=== PATIENT | male | born 1925 | race Caucasian/White ===

== ENCOUNTER 2017-06-17 07:58 | Observation (INO) | payer OTHER ==
[2017-06-17] MEDS ORDERED: NA CHLORIDE 0.9% 1,000 ML ONE (09:06)
[2017-06-17 09:12] LABS: Absolute Lymphocytes (CBC) 0.8 K/uL (0.7-4.9); Absolute Monocytes 0.9 K/uL (0.1-1.3); Absolute Neutrophil 8.1 K/uL (1.8-8.0); Basophils % 0.6 % (0-1.3); Eosinophils % 0.8 % (0-4.4); Hematocrit 31.1 % (39.6-49.0); Lymphocytes % 8.5 % (15.3-44.8); MCH 28.6 pg (27.0-35.0); MPV 9.1 fL (7.6-11.3); Monocytes % 8.8 % (3.3-12.3); RBC Red Blood Cell Count 3.57 M/uL (4.33-5.43)
--- NOTE | 2017-06-17 09:13 | RAD REPORT ---
EXAM DESCRIPTION: CT - Ct Stroke Brain Wo Cont - 06/17/2017 9:05 am CLINICAL HISTORY: CVA COMPARISON: 02/15/2017 TECHNIQUE: All CT scans are performed using dose optimization technique as appropriate and may inclu de automated exposure control or mA/KV adjustment according to patient size. FINDINGS: No intracranial hemorrhage, hydrocephalus or extra-axial fluid collection.Advanced general ized brain atrophy is present with advance periventricular and deep white matter chronic microvascula r ischemic changes. No midline shift. The paranasal sinuses and mastoids are clear. The calvarium is intact. IMPRESSION: No acute intracranial abnormality. The findings were discussed with ER physician Dr. Kyle on 06/17/2017 at 9:10 a.m. by telephone.
--- NOTE | 2017-06-17 09:16 | RAD REPORT ---
EXAM DESCRIPTION: CT - C Spine Wo Con - 06/17/2017 9:05 am CLINICAL HISTORY: Trauma, neck injury COMPARISON: 02/10/2017 TECHNIQUE: Axial 2 mm thick images of the cervical spine were obtained with sagittal and coronal rec onstruction images generated and reviewed. All CT scans are performed using dose optimization technique as appropriate and may include automated exposure control or mA/KV adjustment according to patient size. FINDINGS: Cervical body height and alignment are normal. Multilevel moderate degenerative spondylosi s is present throughout the cervical spine. Multilevel posterior osteophytosis seen. No fracture or a cute bony abnormality. No paraspinal mass or hematoma. Carotid atherosclerosis. IMPRESSION: No acute cervical spine finding seen.
[2017-06-17 09:20] LABS: Protime INR 1.32
--- NOTE | 2017-06-17 09:34 | RAD REPORT ---
EXAM DESCRIPTION: RAD - Chest Single View - 06/17/2017 9:26 am CLINICAL HISTORY: Fall, chest pain. COMPARISON: 02/15/2017, 11/01/2015 FINDINGS: Portable technique limits examination quality. Mild emphysema is present. Linear atelectasis is present left mid lung and right apex. The heart is m ildly prominent in size with aortic atherosclerosis. No displaced fractures. IMPRESSION: Stable chest since 02/15/2017.
[2017-06-17 09:46] LABS: Bicarbonate 30 mEq/L (21-31); Glucose Level 178 mg/dL (65-120); Lipase 35 U/L (22-51); Potassium 3.4 mEq/L (3.6-5.0); Sodium Level 139 mEq/L (135-145)
--- NOTE | 2017-06-17 09:51 | EDPHYS ---
Physician Documentation [facility] Name: Johnny Jaramillo Age: 89 yrs Sex: Male : 1925 Arrival Date: 06/17/2017 Time: 07:56 Bed 16 Private MD: ED Physician Bimal Kyle HPI: 06/17 08:32 This 89 yrs old Male presents to ER via EMS with complaints of Fall Injury. angel 08:32 Details of fall: The patient fell from a height, off furniture, approximately 3 feet. angel Onset: The symptoms/episode began/occurred just prior to arrival, this morning. Associated injuries: The patient sustained no obvious injury. Severity of symptoms: At their worst the symptoms were mild, in the emergency department the symptoms are unchanged. The patient has not experienced similar symptoms in the past. Historical: - Allergies: 08:06 Tape; ph - Home Meds: 08:06 aspirin 81 mg Oral TbEC 1 tab once daily [Active]; Centrum Silver 400-250 mcg Oral chew ph [Active]; Culturelle 10 billion cell Oral cap [Active]; Emilee-C with Bioflavonoids 500-200 mg Oral tab [Active]; Lasix 40 mg Oral tab 1 tab [Active]; metformin 500 mg Oral tab 1 tab 2 times per day [Active]; metoprolol tartrate 25 mg Oral tab 1 tab [Active]; potassium chloride 20 mEq/15 mL Oral liqd 15 mL once daily [Active]; Travatan Z 0.004 % ophthalmic drop 1 drop once daily [Active]; Tylenol-Codeine #3 300-30 mg Oral tab 1 tab every 4-6 hours [Active]; vitamin B complex Oral cap [Active]; - PMHx: 08:06 Cancer; Diabetes - NIDDM; Glaucoma; radiation; Anemia; Hypertension; Cirrhosis; UTI; ph Atrial Fib; - PSHx: 08:06 ear surgery; cancer removed; ph - Immunization history: Last tetanus immunization: unknown. - Social history:: Smoking status: Patient/guardian denies using tobacco. ROS: 08:32 Constitutional: Negative for fever, chills, and weight loss, Eyes: Negative for injury, angel pain, redness, and discharge, ENT: Negative for injury, pain, and discharge, Neck: Negative for injury, pain, and swelling, Cardiovascular: Negative for chest pain, palpitations, and edema, Respiratory: Negative for shortness of breath, cough, wheezing, and pleuritic chest pain, Abdomen/GI: Negative for abdominal pain, nausea, vomiting, diarrhea, and constipation, Back: Negative for injury and pain, : Negative for injury, bleeding, discharge, and swelling, Skin: Negative for injury, rash, and discoloration, Neuro: Negative for headache, weakness, numbness, tingling, and seizure, Psych: Negative for depression, anxiety, suicide ideation, homicidal ideation, and hallucinations, Allergy/Immunology: Negative for hives, rash, and allergies, Endocrine: Negative for neck swelling, polydipsia, polyuria, polyphagia, and marked weight changes, Hematologic/Lymphatic: Negative for swollen nodes, abnormal bleeding, and unusual bruising. 08:32 MS/extremity: Positive for decreased range of motion. 09:30 Neuro: Positive for not a tpa canidate, unknown time of onset, discussed with dr angel narvaez. Exam: 09:20 Constitutional: This is a well developed, well nourished patient who is awake, alert, angel and in no acute distress. Head/Face: Normocephalic, atraumatic. Eyes: Pupils equal round and reactive to light, extra-ocular motions intact. Lids and lashes normal. Conjunctiva and sclera are non-icteric and not injected. Cornea within normal limits. Periorbital areas with no swelling, redness, or edema. ENT: Nares patent. No nasal discharge, no septal abnormalities noted. Tympanic membranes are normal and external auditory canals are clear. Oropharynx with no redness, swelling, or masses, exudates, or evidence of obstruction, uvula midline. Mucous membranes moist. Neck: Trachea midline, no thyromegaly or masses palpated, and no cervical lymphadenopathy. Supple, full range of motion without nuchal rigidity, or vertebral point tenderness. No Meningismus. Chest/axilla: Normal chest wall appearance and motion. Nontender with no deformity. No lesions are appreciated. Respiratory: Lungs have equal breath sounds bilaterally, clear to auscultation and percussion. No rales, rhonchi or wheezes noted. No increased work of breathing, no retractions or nasal flaring. Abdomen/GI: Soft, non-tender, with normal bowel sounds. No distension or tympany. No guarding or rebound. No evidence of tenderness throughout. Back: No spinal tenderness. No costovertebral tenderness. Full range of motion. Male : Normal genitalia with no discharge or lesions. Skin: Warm, dry with normal turgor. Normal color with no rashes, no lesions, and no evidence of cellulitis. Psych: Awake, alert, with orientation to person, place and time. Behavior, mood, and affect are within normal limits. 09:20 Cardiovascular: Rate: normal, Rhythm: irregularly irregular, Pulses: Pulses are 4+ in bilateral radial, brachial, femoral, popliteal, posterior tibial and and dorsalis pedis arteries.. Heart sounds: normal, Edema: is not appreciated, JVD: is not appreciated. 09:20 Musculoskeletal/extremity: DVT Exam: No signs of deep vein thrombosis. no pain, no swelling, no tenderness, negative Homans' sign noted on exam, no appreciated bluish discoloration, no erythema, no increased warmth. 09:20 Neuro: Orientation: is normal, appropriate for stated age, no acute changes, Mentation: is normal, appropriate for stated age, no acute changes, Memory: is normal, appropriate for stated age, no acute changes, Cranial nerves: visual alarcon are intact. extraocular movements are intact, facial droop noted on left, with forehead spared. no gross hearing deficit,. Motor: moves all fours, Strength is 3/5 in the right arm, left arm, right leg and left leg, Gait: not tested. Deep tendon reflexes are 1 (trace) + in the bilateral brachioradialis, bicep, tricep and patellar and Achilles tendons, seizure activity, is not displayed by the patient. Vital Signs: 08:01 BP 106 / 68; Pulse 98; Resp 18; Temp 97.7(O); Pulse Ox 100% on R/A; ph 08:30 BP 116 / 64; Pulse 100; Resp 18; Pulse Ox 100% on R/A; mh5 10:15 ph 11:20 BP 131 / 85; Pulse 99; Resp 18; Temp 97.5(TE); Pulse Ox 99% on R/A; ph 12:30 BP 127 / 78; Pulse 94; Resp 18; Temp 97.5; Pulse Ox 99% on R/A; ph 10:15 Pt in MRI ph NIH Stroke Scale Scores: 09:16 NIHSS Score: 6 ph 09:23 NIHSS Score: 6 angel [place] Coma Score: 08:01 Eye Response: spontaneous(4). Verbal Response: oriented(5). Motor Response: obeys ph commands(6). Total: 15. 11:20 Eye Response: spontaneous(4). Verbal Response: oriented(5). Motor Response: obeys ph commands(6). Total: 15. Trauma Score (Adult): 08:01 Eye Response: spontaneous(1); Verbal Response: oriented(1); Motor Response: obeys ph commands(2); Systolic BP: > 89 mm Hg(4); Respiratory Rate: 10 to 29 per min(4); [place] Score: 15; Trauma Score: 12 11:20 Eye Response: spontaneous(1); Verbal Response: oriented(1); Motor Response: obeys ph commands(2); Systolic BP: > 89 mm Hg(4); Respiratory Rate: 10 to 29 per min(4); [place] Score: 15; Trauma Score: 12 MDM: 07:59 Patient medically screened. [facility] 08:34 Data reviewed: vital signs, nurses notes, lab test result(s), EKG, radiologic studies, [facility] CT scan, plain films. 09:33 Physician consultation: Prashant Narvaez MD was called at 09:30, regarding consult, [facility] patient's condition, need to evaluate the patient as soon as possible, and will see patient in inpatient room, no tpa, asa 81mg and add eliquis , no heparin. 06/17 08:30 Order name: Basic Metabolic Panel [facility] 06/17 08:30 Order name: BNP [facility] 06/17 08:30 Order name: CBC with Diff [facility] 06/17 08:30 Order name: Ckmb [facility] 06/17 08:30 Order name: CPK [facility] 06/17 08:30 Order name: LFT's [facility] 06/17 08:30 Order name: Magnesium [facility] 06/17 08:30 Order name: PT-INR [facility] 06/17 08:30 Order name: Ptt, Activated [facility] 06/17 08:30 Order name: Troponin (emerg Dept Use Only) [facility] 06/17 08:31 Order name: Lipase [facility] 06/17 08:31 Order name: Urine Culture [facility] 06/17 09:13 Order name: CBC with Automated Diff; Complete Time: 09:15 EDMS 06/17 09:20 Order name: Protime (+INR); Complete Time: 09:24 EDMS 06/17 08:30 Order name: XRAY Chest (1 view) [facility] 06/17 08:31 Order name: CT Head C Spine [facility] 06/17 09:14 Order name: CT; Complete Time: 09:15 EDMS 06/17 09:17 Order name: CT; Complete Time: 09:24 EDMS 06/17 09:20 Order name: PTT, Activated Partial Thromb; Complete Time: 09:24 EDRI 06/17 09:32 Order name: US Carotid Artery Bilateral [facility] 06/17 09:47 Order name: Basic Metabolic Panel; Complete Time: 09:55 EDMS 06/17 09:47 Order name: Lipase; Complete Time: 09:55 EDRI 06/17 09:48 Order name: BNP B-Type Natriuretic Peptide; Complete Time: 09:55 EDMS 06/17 09:48 Order name: CKMB Creatine Kinase MB; Complete Time: 09:55 EDMS 06/17 09:48 Order name: Creatine Phosphokinase; Complete Time: 09:55 EDMS 06/17 09:48 Order name: Liver (Hepatic) Function; Complete Time: 09:55 EDMS 06/17 09:48 Order name: Magnesium; Complete Time: 09:55 EDRI 06/17 09:48 Order name: Troponin (Emerg Dept Use Only); Complete Time: 09:54 EDMS 06/17 09:48 Order name: Urine Culture [facility] 06/17 08:30 Order name: EKG; Complete Time: 09:31 [facility] 06/17 08:30 Order name: Cardiac monitoring; Complete Time: 10:15 [facility] 06/17 08:31 Order name: EKG - Nurse/Tech; Complete Time: 10:15 [facility] 06/17 08:31 Order name: IV Saline Lock; Complete Time: 10:15 [facility] 06/17 08:31 Order name: Labs collected and sent; Complete Time: 10:15 [facility] 06/17 08:31 Order name: O2 Per Protocol; Complete Time: 10:16 [facility] 06/17 08:31 Order name: O2 Sat Monitoring; Complete Time: 10:16 [facility] 06/17 09:32 Order name: Echo w/ Doppler [facility] 06/17 09:34 Order name: RAD; Complete Time: 09:34 [facility]RI 06/17 09:49 Order name: Brain Wo Cont; Complete Time: 10:42 [facility]RI 06/17 09:55 Order name: CONS Physician Consult [facility]RI 06/17 11:20 Order name: SUKHI [facility] Administered Medications: 09:29 Not Given (Duplicate Order): PlaVIX 75 mg PO once angel 09:55 Not Given (Duplicate Order): NS 0.9% 1000 ml IV at 125 ml/hr continuous angel 11:40 Drug: Aspirin 162 mg Route: PO; ph 12:40 Follow up: Response: No adverse reaction ph 11:40 Drug: NS 0.9% with KCl 20 mEq/L 1000 ml Route: IV; Rate: 100 ml/hr; Site: left antecubital; 12:40 Follow up: Response: No adverse reaction; IV Status: Infusion continued upon admission ph 11:40 Drug: Magnesium Sulfate 1 grams Route: IVPB; Infused Over: 1 hrs; Site: left antecubital; 12:40 Follow up: Response: No adverse reaction; IV Status: Completed infusion ph 11:41 Drug: NS 0.9% 500 ml Route: IV; Rate: bolus; Site: left antecubital; ph 12:40 Follow up: Response: No adverse reaction; IV Status: Completed infusion ph 11:41 Drug: foLIC Acid 1 mg Route: IVPB; Site: left antecubital; ph 12:40 Follow up: Response: No adverse reaction; IV Status: Completed infusion ph 11:41 Drug: Eliquis 5 mg Route: PO; ph 12:40 Follow up: Response: No adverse reaction ph Point of Care Testing: Blood Glucose: 08:55 Blood Glucose: 168 mg/dL; ph Ranges: Critical Glucose Levels:Adult <50 mg/dl or >400 mg/dl <40 mg/dl or >180 mg/dl Disposition: 06/17/17 09:50 Hospitalization ordered by Oniel Tarango for Inpatient Admission. Preliminary diagnosis are Cerebral infarction, Fall due to bumping against object, Weakness, Atrial fibrillation and flutter, Type 2 diabetes mellitus, Hypokalemia, Hypomagnesemia. - Bed requested for Telemetry/MedSurg (Inpatient). - Status is Inpatient Admission. ph - Condition is Fair. - Problem is new. - Symptoms have improved. UTI on Admission? No NIH Stroke Scale - NIH Stroke Score Date: 06/17/2017 Time: 09:16 Total Score = 6 1a. Level of Consciousness (LOC) - 0(Alert) 1b. Level of Consciousness (LOC) (Year \T\ Age) - 0(Both) 1c. LOC Commands (Open \T\ Closes Eyes/Planner/Scheduler) - 0(Both) 2. Best Gaze (Lateral Gaze Paresis) - 0(Normal) 3. Visual Field Loss - 0(No visual loss) 4. Facial Palsy - 2(Partial paralysis) 5a. Left Arm: Motor (10-second hold) - 0(No drift) 5b. Right Arm: Motor (10-second hold) - 0(No drift) 6a. Left Leg: Motor (5-second hold - always test supine) - 1(Drift) 6b. Right Leg: Motor (5-second hold - always test supine) - 1(Drift) 7. Limb Ataxia (finger/nose \T\ heel/hamm - test with eyes open) - 2(Present in two limbs) 8. Sensory Loss (pinprick arms/legs/face) - 0(Normal) 9. Best Language: Aphasia (description/naming/reading) - 0(No aphasia) 10. Dysarthria (speech clarity - read or repeat words) - 0(Normal) 11. Extinction and Inattention (visual/tactile/auditory/spatial/personal) - 0(No abnormality) Initials: NIH Stroke Scale - NIH Stroke Score Date: 06/17/2017 Time: 09:23 Total Score = 6 1a. Level of Consciousness (LOC) - 0(Alert) 1b. Level of Consciousness (LOC) (Year \T\ Age) - 0(Both) 1c. LOC Commands (Open \T\ Closes Eyes/Planner/Scheduler) - 0(Both) 2. Best Gaze (Lateral Gaze Paresis) - 0(Normal) 3. Visual Field Loss - 0(No visual loss) 4. Facial Palsy - 2(Partial paralysis) 5a. Left Arm: Motor (10-second hold) - 0(No drift) 5b. Right Arm: Motor (10-second hold) - 0(No drift) 6a. Left Leg: Motor (5-second hold - always test supine) - 1(Drift) 6b. Right Leg: Motor (5-second hold - always test supine) - 1(Drift) 7. Limb Ataxia (finger/nose \T\ heel/hamm - test with eyes open) - 2(Present in two limbs) 8. Sensory Loss (pinprick arms/legs/face) - 0(Normal) 9. Best Language: Aphasia (description/naming/reading) - 0(No aphasia) 10. Dysarthria (speech clarity - read or repeat words) - 0(Normal) 11. Extinction and Inattention (visual/tactile/auditory/spatial/personal) - 0(No abnormality) Initials: [facility] Signatures: Dispatcher [employer] EDMS Jennifer Chaudhry Corey, MD MD cha Hall, Patricia, RN RN ph Corrections: (The following items were deleted from the chart) 09:23 08:32 Constitutional: This is a well developed, well nourished patient who is angel awake, alert, and in no acute distress. Head/Face: Normocephalic, atraumatic. Eyes: Pupils equal round and reactive to light, extra-ocular motions intact. Lids and lashes normal. Conjunctiva and sclera are non-icteric and not injected. Cornea within normal limits. Periorbital areas with no swelling, redness, or edema. ENT: Nares patent. No nasal discharge, no septal abnormalities noted. Tympanic membranes are normal and external auditory canals are clear. Oropharynx with no redness, swelling, or masses, exudates, or evidence of obstruction, uvula midline. Mucous membranes moist. Neck: Trachea midline, no thyromegaly or masses palpated, and no cervical lymphadenopathy. Supple, full range of motion without nuchal rigidity, or vertebral point tenderness. No Meningismus. Chest/axilla: Normal chest wall appearance and motion. Nontender with no deformity. No lesions are appreciated. Cardiovascular: Regular rate and rhythm with a normal S1 and S2. No gallops, murmurs, or rubs. Normal PMI, no JVD. No pulse deficits. Respiratory: Lungs have equal breath sounds bilaterally, clear to auscultation and percussion. No rales, rhonchi or wheezes noted. No increased work of breathing, no retractions or nasal flaring. Abdomen/GI: Soft, non-tender, with normal bowel sounds. No distension or tympany. No guarding or rebound. No evidence of tenderness throughout. Back: No spinal tenderness. No costovertebral tenderness. Full range of motion. Male : Normal genitalia with no discharge or lesions. Skin: Warm, dry with normal turgor. Normal color with no rashes, no lesions, and no evidence of cellulitis. Neuro: Awake and alert, GCS 15, oriented to person, place, time, and situation. Cranial nerves II-XII grossly intact. Motor strength 5/5 in all extremities. Sensory grossly intact. Cerebellar exam normal. Normal gait. Psych: Awake, alert, with orientation to person, place and time. Behavior, mood, and affect are within normal limits. angel 09:23 08:32 Musculoskeletal/extremity: DVT Exam: No signs of deep vein thrombosis. no angel pain, no swelling, no tenderness, negative Homans' sign noted on exam, no appreciated bluish discoloration, no erythema, no increased warmth, [facility] 10:07 09:32 MR STROKE PROTOCOL+MRI.JIAN.CALDERON ordered. EDMS EDMS
--- NOTE | 2017-06-17 09:51 | ER ---
Nurse's Notes [facility] Name: Johnny Jaramillo Age: 89 yrs Sex: Male : 1925 Arrival Date: 06/17/2017 Time: 07:56 Bed 16 Private MD: Diagnosis: Cerebral infarction;Fall due to bumping against object;Weakness;Atrial fibrillation and flutter;Type 2 diabetes mellitus;Hypokalemia;Hypomagnesemia Presentation: 06/17 07:57 Presenting complaint: EMS states: Pt from [facility], was found at 0645 this morning ph on floor by staff after falling from unknown position, pt denies LOC or pain, staff stated that the only reason she sent him in was because pupillary response was sluggish, pupils PERRLA for EMS. Care prior to arrival: None. Mechanism of Injury: Fall. Trauma event details: Injury occurred in the [facility], Injury occurred: in an institution. Injury occurred: June 17, 2017. 07:57 Acuity: HILDA 3 ph 07:57 Method Of Arrival: EMS: [facility] ph 08:08 Transition of care: patient was received from another setting of care (long-term care facility), [facility]. Onset of symptoms was June 17, 2017. 08:55 No acute neurological deficit is noted. ph Triage Assessment: 19:11 The onset of the patients symptoms was. ph 19:16 The onset of the patients symptoms was. ph Stroke Activation: Symptom onset < 3 hours Physician: Stroke Attending; Name: ; Notified At: ; Arrived At: Physician: Chief Stroke Resident; Name: ; Notified At: ; Arrived At: Physician: Stroke Resident; Name: ; Notified At: ; Arrived At: Physician: ED Attending; Name: ; Notified At: ; Arrived At: Physician: ED Resident; Name: ; Notified At: ; Arrived At: Historical: - Allergies: 08:06 Tape; ph - Home Meds: 08:06 aspirin 81 mg Oral TbEC 1 tab once daily [Active]; Centrum Silver 400-250 mcg Oral chew ph [Active]; Culturelle 10 billion cell Oral cap [Active]; Emilee-C with Bioflavonoids 500-200 mg Oral tab [Active]; Lasix 40 mg Oral tab 1 tab [Active]; metformin 500 mg Oral tab 1 tab 2 times per day [Active]; metoprolol tartrate 25 mg Oral tab 1 tab [Active]; potassium chloride 20 mEq/15 mL Oral liqd 15 mL once daily [Active]; Travatan Z 0.004 % ophthalmic drop 1 drop once daily [Active]; Tylenol-Codeine #3 300-30 mg Oral tab 1 tab every 4-6 hours [Active]; vitamin B complex Oral cap [Active]; - PMHx: 08:06 Cancer; Diabetes - NIDDM; Glaucoma; radiation; Anemia; Hypertension; Cirrhosis; UTI; ph Atrial Fib; - PSHx: 08:06 ear surgery; cancer removed; ph - Immunization history: Last tetanus immunization: unknown. - Social history:: Smoking status: Patient/guardian denies using tobacco. Screenin:07 Abuse screen: Denies threats or abuse. Denies injuries from another. Nutritional ph screening: On. Tuberculosis screening: No symptoms or risk factors identified. Fall Risk Fall in past 12 months (25 points). Secondary diagnosis (15 points) impaired mobility, No IV (0 pts). Ambulatory Aid- Crutches/Cane/Walker (15 pts). Gait- Weak (10 pts.). Mental Status- Oriented to own ability (0 pts). Total Brewer Fall Scale indicates High Risk Score (45 or more points). Fall prevention measures have been instituted. Side Rails Up X 2 Placed Close to Nursing Station Frequent Obs/Assessments Occuring As available patient and family educated on Fall Prevention Program and Strategies. Primary Survey: 08:07 A: Airway: patent. Breathing/Chest: Respiratory pattern: regular, Respiratory effort: ph spontaneous, unlabored. Circulation: Skin color: pink, Skin temperature: warm, dry. Disability Alert. 12:40 Reassessment Breathing/Chest Respiratory pattern Regular Respiratory effort Spontaneous ph Unlabored. Assessment: 08:10 General: Appears in no apparent distress. comfortable, slender, Behavior is calm, ph cooperative, drowsy. Pain: Denies pain. Neuro: Level of Consciousness is awake, obeys commands, Oriented to person, place, situation, Pupils are PERRLA. Neuro: Denies blurred vision dizziness, headache. Cardiovascular: Denies chest pain, lightheadedness, shortness of breath, Capillary refill < 3 seconds Patient's skin is warm and dry. Respiratory: Airway is patent Trachea midline Respiratory effort is even, unlabored, Respiratory pattern is regular, symmetrical. Derm: Skin is fragile, is thin, Skin is pink, warm \T\ dry. Musculoskeletal: Circulation, motion, and sensation intact. 08:55 Reassessment: Radiology at bedside for CXR, notified nurse of facial droop, droop noted ph to L side of face, measuring machine tender noted to be weak on L side, ERP notified of changes, code stroke called. 08:56 Reassessment: Pt taken to CT via stretcher, accompanied by Lo Gipson RN. ph 09:16 Reassessment: ERP at bedside. ph 09:18 Reassessment: Patient appears in no apparent distress at this time. Patient and/or ph family updated on plan of care and expected duration. Pain level reassessed. Rocio w/ Cj at [facility] who reported that pt was seen at 0600 trying to get out of bed, but reports that last seen normal is unkown. 10:17 Reassessment: Pt in MRI. ph 11:04 Reassessment: Patient appears in no apparent distress at this time. Patient and/or ph family updated on plan of care and expected duration. Pain level reassessed. Patient is alert, oriented x 3, equal unlabored respirations, skin warm/dry/pink. Tech at bedside for ECHO, pt resting quietly, awaiting room assignment, at bedside. 11:35 Patient has been NPO before screening. The patient is alert, and able to follow ph commands. The patient does not exhibit slurred or garbled speech. The patient is not exhibiting difficulty speaking. The patient does not exhibit difficulty understanding words. The patient is able to swallow own secretions with no drooling or need for suction. Patient tolerated one teaspoon of water. No drooling, immediate coughing, gurgling, or clearing of the throat was noted. The patient passed the bedside swallow screening. Oral medications may be given as ordered. Contact Physician for further diet orders. Provider notified of bedside swallow screening results: Bimal Kyle MD. 12:17 Reassessment: Patient appears in no apparent distress at this time. Patient and/or ph family updated on plan of care and expected duration. Pain level reassessed. Patient is alert, oriented x 3, equal unlabored respirations, skin warm/dry/pink. Report called to Mary Dumont RN, pt waiting to be taken to inpatient room. Vital Signs: 08:01 BP 106 / 68; Pulse 98; Resp 18; Temp 97.7(O); Pulse Ox 100% on R/A; ph 08:30 BP 116 / 64; Pulse 100; Resp 18; Pulse Ox 100% on R/A; mh5 10:15 ph 11:20 BP 131 / 85; Pulse 99; Resp 18; Temp 97.5(TE); Pulse Ox 99% on R/A; ph 12:30 BP 127 / 78; Pulse 94; Resp 18; Temp 97.5; Pulse Ox 99% on R/A; ph 10:15 Pt in MRI ph Jenna Coma Score: 08:01 Eye Response: spontaneous(4). Verbal Response: oriented(5). Motor Response: obeys ph commands(6). Total: 15. 11:20 Eye Response: spontaneous(4). Verbal Response: oriented(5). Motor Response: obeys ph commands(6). Total: 15. Trauma Score (Adult): 08:01 Eye Response: spontaneous(1); Verbal Response: oriented(1); Motor Response: obeys ph commands(2); Systolic BP: > 89 mm Hg(4); Respiratory Rate: 10 to 29 per min(4); Jenna Score: 15; Trauma Score: 12 11:20 Eye Response: spontaneous(1); Verbal Response: oriented(1); Motor Response: obeys ph commands(2); Systolic BP: > 89 mm Hg(4); Respiratory Rate: 10 to 29 per min(4); [place] Score: 15; Trauma Score: 12 NIH Stroke Scale Scores: 09:16 NIHSS Score: 6 ph 09:23 NIHSS Score: 6 [facility] ED Course: 07:56 Patient arrived in ED. ph 07:59 Bimal Kyle MD is Attending Physician. [facility] 08:00 Triage completed. ph 08:01 Patient has correct armband on for positive identification. Placed in gown. Bed in low mh5 position. Side rails up X2. 08:02 Warm blanket given. Pulse ox on. NIBP on. mh5 08:09 Arm band placed on. ph 08:09 Patient maintains SpO2 saturation greater than 95% on room air. Thermoregulation: warm ph blanket given to patient. 08:13 Dejah Fragoso, WOODY is Primary Nurse. ph 09:00 Initial lab(s) drawn, by nh, sent to lab. Inserted saline lock: 22 gauge in left mh5 antecubital area, using aseptic technique. Blood collected. 09:13 X-ray completed. Portable x-ray completed in exam room. Patient tolerated procedure jb2 well. 09:16 EKG done, by emissions testing technician. reviewed by Bimal Kyle MD. tc 09:42 Oniel Tarango MD is Hospitalizing Provider. angel 09:57 Patient moved to MRI via stretcher. em2 10:28 Patient taken to ultrasound. via stretcher. hr 11:00 MRI completed. Patient tolerated well. ka 11:00 Ultrasound completed. Patient tolerated well. lc3 11:00 Patient moved back from ultrasound. lc3 12:43 No provider procedures requiring assistance completed. Patient admitted, IV remains in ph place. Administered Medications: 09:29 Not Given (Duplicate Order): PlaVIX 75 mg PO once angel 09:55 Not Given (Duplicate Order): NS 0.9% 1000 ml IV at 125 ml/hr continuous angel 11:40 Drug: Aspirin 162 mg Route: PO; ph 12:40 Follow up: Response: No adverse reaction ph 11:40 Drug: NS 0.9% with KCl 20 mEq/L 1000 ml Route: IV; Rate: 100 ml/hr; Site: left ph antecubital; 12:40 Follow up: Response: No adverse reaction; IV Status: Infusion continued upon admission ph 11:40 Drug: Magnesium Sulfate 1 grams Route: IVPB; Infused Over: 1 hrs; Site: left ph antecubital; 12:40 Follow up: Response: No adverse reaction; IV Status: Completed infusion ph 11:41 Drug: NS 0.9% 500 ml Route: IV; Rate: bolus; Site: left antecubital; ph 12:40 Follow up: Response: No adverse reaction; IV Status: Completed infusion ph 11:41 Drug: foLIC Acid 1 mg Route: IVPB; Site: left antecubital; ph 12:40 Follow up: Response: No adverse reaction; IV Status: Completed infusion ph 11:41 Drug: Eliquis 5 mg Route: PO; ph 12:40 Follow up: Response: No adverse reaction ph Point of Care Testing: Blood Glucose: 08:55 Blood Glucose: 168 mg/dL; ph Ranges: Intake: 08:01 PO: 0ml; Total: 0ml. ph Output: 08:01 Urine: 0ml; Total: 0ml. Outcome: 09:50 Decision to Hospitalize by Provider. angel 12:43 Patient left the ED. ph 12:43 Admitted to Tele accompanied by tech, via stretcher, with chart. ph 12:43 Condition: stable 12:43 Instructed on the need for admit. 12:43 Patient's length of stay was not longer than 2 hours. NIH Stroke Scale - NIH Stroke Score Date: 06/17/2017 Time: 09:16 Total Score = 6 1a. Level of Consciousness (LOC) - 0(Alert) 1b. Level of Consciousness (LOC) (Year \T\ Age) - 0(Both) 1c. LOC Commands (Open \T\ Closes Eyes/Gis Application Developer) - 0(Both) 2. Best Gaze (Lateral Gaze Paresis) - 0(Normal) 3. Visual Field Loss - 0(No visual loss) 4. Facial Palsy - 2(Partial paralysis) 5a. Left Arm: Motor (10-second hold) - 0(No drift) 5b. Right Arm: Motor (10-second hold) - 0(No drift) 6a. Left Leg: Motor (5-second hold - always test supine) - 1(Drift) 6b. Right Leg: Motor (5-second hold - always test supine) - 1(Drift) 7. Limb Ataxia (finger/nose \T\ heel/hamm - test with eyes open) - 2(Present in two limbs) 8. Sensory Loss (pinprick arms/legs/face) - 0(Normal) 9. Best Language: Aphasia (description/naming/reading) - 0(No aphasia) 10. Dysarthria (speech clarity - read or repeat words) - 0(Normal) 11. Extinction and Inattention (visual/tactile/auditory/spatial/personal) - 0(No abnormality) Initials: NIH Stroke Scale - NIH Stroke Score Date: 06/17/2017 Time: 09:23 Total Score = 6 1a. Level of Consciousness (LOC) - 0(Alert) 1b. Level of Consciousness (LOC) (Year \T\ Age) - 0(Both) 1c. LOC Commands (Open \T\ Closes Eyes/Gis Application Developer) - 0(Both) 2. Best Gaze (Lateral Gaze Paresis) - 0(Normal) 3. Visual Field Loss - 0(No visual loss) 4. Facial Palsy - 2(Partial paralysis) 5a. Left Arm: Motor (10-second hold) - 0(No drift) 5b. Right Arm: Motor (10-second hold) - 0(No drift) 6a. Left Leg: Motor (5-second hold - always test supine) - 1(Drift) 6b. Right Leg: Motor (5-second hold - always test supine) - 1(Drift) 7. Limb Ataxia (finger/nose \T\ heel/hamm - test with eyes open) - 2(Present in two limbs) 8. Sensory Loss (pinprick arms/legs/face) - 0(Normal) 9. Best Language: Aphasia (description/naming/reading) - 0(No aphasia) 10. Dysarthria (speech clarity - read or repeat words) - 0(Normal) 11. Extinction and Inattention (visual/tactile/auditory/spatial/personal) - 0(No abnormality) Initials: angel Signatures: Bimal Kyle MD MD cha Buechter, Rajiv jb2 Sree, Tom [place] em2 Jeannette Proctor, dramatic art teacher EKG Ttc Dejah Fragoso, WOODY RN Seth Chan Katelyn ka Martinez, Maria [facility] Corrections: (The following items were deleted from the chart) 09:07 09:04 BP 116 / 64; Pulse 100bpm; Resp 18bpm; Pulse Ox 100% RA; mh5 mh5 11:02 08:52 Reassessment: Radiology at bedside for CXR, notified nurse of facial ph droop, droop noted to L side of face, measuring machine tender noted to be weak on L side, ERP notified of changes, code stroke called ph
[2017-06-17 09:53] LABS: ALT/SGPT 20 IU/L (10-60); AST/SGOT 23 IU/L (10-42); Albumin 2.2 g/dL (3.2-5.5); Alkaline Phosphatase 189 IU/L (42-121); BUN Blood Urea Nitrogen 19 mg/dL (6-20); Bilirubin Direct 0.2 mg/dL (0-0.2); Bilirubin Total 0.6 mg/dL (0.3-1.2); Creatine Phosphokinase 83 IU/L (22-269); Glomerular Filtration Rate > 90 mL/min (=/>90); Magnesium 1.6 mg/dL (1.8-2.5); Protein, Total 6.6 g/dL (6.0-8.3)
[2017-06-17] MEDS ORDERED: APIXABAN 5 MG TABLET PO ONE (10:15)
--- NOTE | 2017-06-17 10:21 | EKG ---
Test Date: 2017-06-17 Test Time: 09:08:55 Advertising Sales Agent: PAYAL MEASUREMENT RESULTS: Intervals: Rate: 102 CO: QRSD: 90 QT: 310 QTc: 404 [place]: P: CO: QRS: 76 T: 87 INTERPRETIVE STATEMENTS: Atrial fibrillation with rapid ventricular response Abnormal ECG Compared to ECG 02/15/2017 02:00:40 ST (T wave) deviation no longer present Electronically Signed On 06-17-17 10:21:08 CDT by Gilberto Ludwig
[2017-06-17] MEDS ORDERED: NS KCL 20MEQ 1,000 ML IV ONE (10:23)
[2017-06-17] MEDS ORDERED: NA CHLORIDE 0.9% 500 ML ONE (10:23)
[2017-06-17] MEDS ORDERED: ASPIRIN 81 MG CHEWABLE TABLET ONE (10:23)
[2017-06-17] MEDS ORDERED: MAGNESIUM SULFATE 1 gm IVPB 1 GM/100 ML BAG IV ONE (10:24)
[2017-06-17] MEDS ORDERED: FOLIC ACID 5 MG/ML VIAL ONE (10:25)
--- NOTE | 2017-06-17 10:42 | RAD REPORT ---
EXAM DESCRIPTION: MRI - Brain Wo Cont - 06/17/2017 10:19 am CLINICAL HISTORY: Syncope COMPARISON: August 2014 MRI brain TECHNIQUE: Axial, sagittal, and coronal magnetic images of the brain were obtained. Contrast was not requested FINDINGS: Moderate to marked abnormal signal is present within periventricular, deep and subcortical white matter likely representing ischemic changes secondary to small vessel disease. Diffusion-weighted/ADC mapping does not reveal evidence of acute infarction. The ventricles are normal caliber. Cerebral atrophy is present. An extra-axial fluid collection is not present Fluid within the sinuses/mastoids is not seen. A 21 millimeter cystic lesion within the left parotid gland is without significant change. IMPRESSION: No acute intracranial abnormality is seen.
--- NOTE | 2017-06-17 11:20 | RAD REPORT ---
EXAM DESCRIPTION: VASCarotid Artery Bilateral06/17/2017 10:49 am CLINICAL HISTORY: TIA COMPARISON: None FINDINGS: The velocity of the right internal carotid artery equals 47 cm/sec. The right ICA/CCA rati o 1.2 The velocity of the left internal carotid artery equals 61 cm/sec. The left ICA/CCA ratio 1.3 Mild plaque is present within the right carotid bulb. Mild plaque is present within additional caroti d arteries The vertebral arteries demonstrate antegrade flow IMPRESSION: Mild to moderate plaque within the carotid arteries without evidence of a hemodynamicall y significant stenosis
--- NOTE | 2017-06-17 11:51 | ECHO ---
HEIGHT: ft in WEIGHT: lb oz DATE OF STUDY: 06/17/[address]: Bimal Kyle MD 2-DIMENSIONAL: YES M.MODE: YES DOPPLER: YES COLOR FLOW: YES TDS: PORTABLE: YES DEFINITY: BUBBLE STUDY: DIAGNOSIS: ATRIAL FIBRILLATION CARDIAC HISTORY: CATHERIZATION: NO SURGERY: NO PROSTHETIC VALVE: NO PACEMAKER: NO MEASUREMENTS (cm) DIASTOLIC (NORMALS) SYSTOLIC (NORMALS) IVSd 1.2 (0.6-1.2) LA Diam 5.1 (1.9-4.0) LVEF 69% LVIDd 4.7 (3.5-5.7) LVIDs 2.9 (2.0-3.5) %FS 38% LVPWd 1.2 (0.6-1.2) Ao Diam 3.4 (2.0-3.7) 2 DIMENSIONAL ASSESSMENT: RIGHT ATRIUM: NORMAL, PROMINENT EUSTACHIAN VALVE LEFT ATRIUM: DILATED RIGHT VENTRICLE: NORMAL LEFT VENTRICLE: LEFT VENTRICULAR HYPERTROPHY TRICUSPID VALVE: NORMAL MITRAL VALVE: MITRAL ANNULAR CALCIFICATION PULMONIC VALVE: NORMAL AORTIC VALVE: SCLEROSIS PERICARDIAL EFFUSION: NONE AORTIC ROOT: NORMAL LEFT VENTRICULAR WALL MOTION: NORMAL DOPPLER/COLOR FLOW: MILD TO MODERATE MITRAL REGURGITATION. MILD AORTIC AND TRICUSPID REGURGITATION. MILD PULMONARY HYPERTENSION. ESTIMATED RIGHT VENTRICULAR SYSTOLIC PRESSURE. COMMENTS: NORMAL LEFT VENTRICULAR EJECTION FRACTION. DILATED LEFT ATRIUM. LEFT VENTRICULAR HYPERTROPHY. MITRAL ANNULAR CALCIFICATION. AORTIC SCLEROSIS. MILD MITRAL AND TRICUSPID REGURGITATION. MILD PULMONARY HYPERTENSION. MILD TO MODERATE MITRAL REGURGITATION. TECHNOLOGIST: TORIN ESPINOSA
--- NOTE | 2017-06-17 15:01 | P.HP ---
Certification for Inpatient Patient admitted to: Observation With expected LOS: <2 Midnights Patient will require the following post-hospital care: None Practitioner: I am a practitioner with admitting privileges, knowledge of patient current condition, hospital course, and medical plan of care. Services: Services provided to patient in accordance with Admission requirements found in Title 42 Section 412.3 of the Code of Federal Regulations Patient History Date of Service: 06/17/17 Reason for admission: Fall History of Present Illness: This is a 89-year-old gentleman with a history of hypertension diabetes and the congestive heart failure atrial fibrillation who was brought in emergency room after falling in assisted today. The patient underwent evaluation the ER with the MRI a which is unremarkable for acute stroke. The patient was noticed to have a right side facial drop Allergies adhesive tape Allergy (Verified 05/07/16 10:03) Rash Home Medications: Ascorbate Calcium/Bioflavonoid [Emilee-C 500 mg Tablet] 1 each PO 1700 09/27/15 Furosemide [Lasix*] 40 mg PO SEECOM 09/27/15 Lactobacillus Rhamnosus GG [Culturelle] 1 tab PO DAILY 09/27/15 Metoprolol Tartrate [Lopressor*] 25 mg PO DAILY WITH BREAKFAST 09/27/15 Multivit-Min/FA/Lycopen/Lutein [Centrum Silver Tablet] 1 tab PO DAILY 09/27/15 Travoprost (Benzalkonium) [Travatan 0.004% Eye Drop] 1 drop OP BEDTIME 09/27/15 Vitamin B Complex 100 No.2 [B-100 Complex] 1 tab PO DAILY 09/27/15 Metformin HCl [Glucophage*] 500 mg PO BIDWM 11/01/15 Potassium Chloride [Micro-K] 20 meq PO SEECOM 11/01/15 Aspirin [Aspirin EC 81 MG] 81 mg PO DAILY 11/02/15 - Past Medical/Surgical History Diabetic: Yes -: Glaucoma -: A-fib -: Hepatitis -: HTN -: DM -: lung cancer -: anemia -: Lung CA- radiation -: Right Ear CA surgery -: tonsillectomy - Family History Mother -: Hypertension Father -: Cancer Notes: skin cancer - Social History Alcohol use: No CD- Drugs: No Caffeine use: No Review of Systems is unable to be obtained Physical Examination - Vital Signs Temperature: 97.5 F Blood Pressure: 131/85 Pulse: 99 Respirations: 18 - Physical Exam General: Alert, In no apparent distress, Oriented x2 HEENT: Atraumatic, PERRLA, Mucous membr. moist/pink, EOMI, Sclerae nonicteric Neck: Supple, 2+ carotid pulse no bruit, No LAD, Without JVD or thyroid abnormality Respiratory: Clear to auscultation bilaterally, Normal air movement Cardiovascular: Regular rate/rhythm, Normal S1 S2 Gastrointestinal: Normal bowel sounds, No tenderness Musculoskeletal: No tenderness Integumentary: No rashes Neurological: Other (He can move in arms but is hard for him to move his legs), Abnormal gait, Dementia Lymphatics: No axilla or inguinal lymphadenopathy - Studies Laboratory Data (last 24 hrs) 06/17/17 08:45: B-Natriuretic Peptide 272 H 06/17/17 08:45: Sodium 139, Potassium 3.4 L, BUN 19, Creatinine 0.75, Glucose 178 H, Magnesium 1.6 L, Total Bilirubin 0.6, AST 23, ALT 20, Alkaline Phosphatase 189 H, Lipase 35 06/17/17 08:45: PT 15.6 H, INR 1.32, APTT 28.9 06/17/17 08:45: WBC 10.0, Hgb 10.2 L, Hct 31.1 L, Plt Count 237 06/17/17 08:31: Sodium Cancelled, Potassium Cancelled, BUN Cancelled, Creatinine Cancelled, Glucose Cancelled, Magnesium Cancelled, Total Bilirubin Cancelled, AST Cancelled, ALT Cancelled, Alkaline Phosphatase Cancelled, Lipase Cancelled Assessment and Plan - Problems (Diagnosis) (1) Altered mental status Current Visit: Yes Status: Acute (2) Essential hypertension Current Visit: Yes Status: Chronic (3) Congestive heart failure Current Visit: Yes Status: Chronic Qualifiers: Heart failure type: diastolic Heart failure chronicity: chronic Qualified Code(s): I50.32 - Chronic diastolic (congestive) heart failure (4) Altered mental status Onset Date: 02/16/17 Current Visit: No Status: Acute Qualifiers: (5) Dehydration Current Visit: Yes Status: Acute (6) Hypertensive heart disease Current Visit: Yes Status: Chronic Qualifiers: Heart failure presence: with heart failure Heart failure type: diastolic Heart failure chronicity: chronic Qualified Code(s): I11.0 - Hypertensive heart disease with heart failure; I50.32 - Chronic diastolic (congestive) heart failure; I50.32 - Chronic diastolic (congestive) heart failure; I50.32 - Chronic diastolic (congestive) heart failure; I50.32 - Chronic diastolic ( congestive) heart failure (7) Afib Onset Date: 09/28/15 Current Visit: Yes Status: Chronic Qualifiers: Atrial fibrillation type: paroxysmal Qualified Code(s): I48.0 - Paroxysmal atrial fibrillation (8) Cirrhosis Onset Date: 02/16/17 Current Visit: Yes Status: Chronic Qualifiers: Ascites presence: unspecified (9) Diabetes Current Visit: Yes Status: Chronic Qualifiers: Diabetes mellitus type: type 2 Diabetes mellitus complication status: without complication - Plan --urinalysis rule out urinary tract infection --start patient on intravenous fluid replacement and potassium replacement --home medicine --start aspirin --clinically stroke insists based suspected. However MRI was negative for for stroke - Advance Directives Does patient have a Living Will: Yes Does patient have a Durable POA for Healthcare: Yes
[2017-06-17 15:36] VITALS: BMI 22.0
[2017-06-17] MEDS: ASPIRIN EC 81 MG TAB PO SCH (17:32)
[2017-06-17] MEDS: Ringers Lactate 1,000 ML IV SCH ×2 (17:32→23:55)
[2017-06-17 21:36] LABS: Urine Appearance CLEAR; Urine Bilirubin NEGATIVE (NEG); Urine Blood 1+ (NEG); Urine Color YELLOW; Urine Glucose NEGATIVE (NEG); Urine Microscopic Reflex ORDER UMIC; Urine Protein TRACE (NEG); Urine Specific Gravity 1.025 (1.005-1.030)
[2017-06-17 21:49] LABS: Urine Bacteria <20 /HPF (NONE SEEN); Urine Culture Reflex Order NOT NEEDED; Urine RBC 20-50 /HPF (NONE SEEN)
--- NOTE | 2017-06-17 23:24 | CON ---
Reason For Consultation: Consultation called because of fall from 3 feet off furniture. History Of Present Illness: Mr. Jaramillo is an 89-year-old patient with history of atrial fibrillation, nxe-wmybgje-tavdreozz diabetes mellitus, and cancer, who reportedly fell off furniture about 3 feet earlier in the morning on the . There was no reported obvious injury at that time. However, the patient appeared to be somewhat less responsive than usual self. He was evaluated in the emergency room and had a head CT scan which showed no acute ischemic or hemorrhagic change. The study however did show advanced small vessel ischemic disease. A subsequent brain MRI also done earlier today showed no acute ischemic or hemorrhagic change. However, there was marked periventricular small-vessel ischemic disease. His carotid artery ultrasound did demonstrate toub-lq-iduuooej plaque in carotid arteries without hemodynamically significant stenosis. Echocardiogram showed ejection fraction of 69% with mild regurgitation at multiple valves. Laboratory studies showed normal white blood cell count, mildly low hemoglobin 10.2, and platelets normal at 237. Coagulation panel showed INR of 1.32. Chemistries showed mildly low potassium of 3.4, glucose was 178, magnesium slightly low at 1.6, albumin low at 3.2. His electrocardiogram did show atrial fibrillation with a rapid ventricular response. Past Medical History: As indicated above in addition to glaucoma, diabetes, hypertension, history of lung cancer, chronic anemia. Past Surgical History: Status post radiation for cancer, right ear surgery, and tonsillectomy. Family History: Positive for hypertension in mother and cancer in father which is skin cancer. Social History: No alcohol, tobacco, or IV drug use. Allergies: ADHESIVE TAPE. Medications: At home, Emilee-C 500 mg daily, Lasix 40 mg daily, lactobacillus cultures daily, Lopressor 25 mg daily, Centrum Silver daily, Travatan 0.001% eyedrops at bedtime daily, Super B complex daily, Glucophage 500 mg twice daily , potassium chloride 20 mEq daily, aspirin 81 mg daily. Review of Systems: The patient is slow to respond and has not been able to give very reliable review of systems. However, from chart review and evaluation from emergency room notes, the patient did not have any recent fevers or chills, nausea, or vomiting. No myalgias, arthralgias, or generalized weakness or any generalized other issues. 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 Physical Examination: Vital Signs: Blood pressure 133/64, pulse 83, respiratory rate 16, temperature 97.6, oxygen saturation 97% on room air. Weight 158 pounds. Height 5 feet 11 inches. General: Mr. Jaramillo is resting in bed. He appears to be in no acute distress. HEENT: He is normocephalic, atraumatic. He does have poor dentition. Sclerae anicteric. Neck: Supple. Chest: Shows good air movement. Abdomen: Soft. Extremities: No significant edema or cyanosis. Neurologic: Neurologically, the patient was somewhat sleepy, however aroused easily and answered questions with a few words, did not appropriately. He did move the arms. Multiple covers over him with the legs equally well, although less than the arms. There are symmetric reflexes and good coordination in the upper extremities. Assessment: Mr. 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 He does have atrial fibrillation that is likely to be paroxysmal and should be a candidate for anticoagulation. However, given the patient's possible risk of falling that should be considered care as he may impact the head and that may result in intracranial bleeding, if he is put on anticoagulation. However, it should be noted that atrial fibrillation does increase the risk of stroke 5 fold over general population. Plan: The patient at this point may continue with a regimen of aspirin 81 mg daily, Eliquis 5 mg twice daily and folate 1 mg daily. Continue with comorbid medications as per primary team. He may benefit from physical therapy to improve his balance, coordination, gait, and decrease his risk of falling. ALEJANDRINA Voice ID: [id number] Report ID: [id number] CARMELA
[2017-06-18 04:49] LABS: ALT/SGPT 17 IU/L (10-60); AST/SGOT 20 IU/L (10-42); Alkaline Phosphatase 152 IU/L (42-121); BUN Blood Urea Nitrogen 20 mg/dL (6-20); Bicarbonate 29 mEq/L (21-31); Bilirubin Total 0.6 mg/dL (0.3-1.2); Glomerular Filtration Rate > 90 mL/min (=/>90); Glucose Level 171 mg/dL (65-120); Potassium 3.5 mEq/L (3.6-5.0); Protein, Total 5.9 g/dL (6.0-8.3); Sodium Level 140 mEq/L (135-145)
[2017-06-18] MEDS ORDERED: MEDIHONEY 44 ML TOPICAL TUBE TOP SCH (09:00)
[2017-06-18] MEDS ORDERED: FOLIC ACID 1 MG in NA CHLORIDE 0.9% 50 ML IV SCH (09:00)
[2017-06-18] MEDS: ASPIRIN EC 81 MG TAB PO SCH (09:52)
[2017-06-18] MEDS: Ringers Lactate 1,000 ML IV SCH (09:58)
--- NOTE | 2017-06-18 14:38 | RAD REPORT ---
EXAM DESCRIPTION: RAD - Barium Swallow Modified - 06/18/2017 2:19 pm CLINICAL HISTORY: Aspiration, difficulty swallowing COMPARISON: None. TECHNIQUE: The patient was given liquid, semi-solid and solid forms of barium. Lateral view fluorosc opic imaging was performed in conjunction with [facility]. FINDINGS: Laryngeal penetration was observed on the thin barium that the patient was able to clear. There was significant residual in the valleculae and piriform sinuses. Patient showed a delayed swall ow reflex. IMPRESSION: Laryngeal penetration without aspiration confirmed. Please see further detail on speech pathology report.
[2017-06-18 16:33] VITALS: BP 136/68; TEMP 98
--- NOTE | 2017-06-18 17:50 | P.DS ---
Admission Date: 06/17/17 Discharge Date: 06/18/17 Disposition: TRANSFER TO CARE HOME Discharge Condition: FAIR Reason for Admission: Fall - Problems (1) Dehydration Onset Date: 06/18/17 Current Visit: Yes Status: Acute (2) Altered mental status Onset Date: 06/18/17 Current Visit: Yes Status: Acute (3) Essential hypertension Onset Date: 06/18/17 Current Visit: Yes Status: Chronic (4) Congestive heart failure Onset Date: 06/18/17 Current Visit: Yes Status: Chronic Qualifiers: Heart failure type: diastolic Heart failure chronicity: chronic Qualified Code(s): I50.32 - Chronic diastolic (congestive) heart failure (5) Altered mental status Onset Date: 02/16/17 Current Visit: No Status: Acute Qualifiers: (6) Hypertensive heart disease Onset Date: 06/18/17 Current Visit: Yes Status: Chronic Qualifiers: Heart failure presence: with heart failure Heart failure type: diastolic Heart failure chronicity: chronic Qualified Code(s): I11.0 - Hypertensive heart disease with heart failure; I50.32 - Chronic diastolic (congestive) heart failure; I50.32 - Chronic diastolic (congestive) heart failure; I50.32 - Chronic diastolic (congestive) heart failure; I50.32 - Chronic diastolic ( congestive) heart failure (7) Afib Onset Date: 09/28/15 Current Visit: Yes Status: Chronic Qualifiers: Atrial fibrillation type: paroxysmal Qualified Code(s): I48.0 - Paroxysmal atrial fibrillation (8) Cirrhosis Onset Date: 02/16/17 Current Visit: Yes Status: Chronic Qualifiers: Ascites presence: unspecified (9) Diabetes Onset Date: 06/18/17 Current Visit: Yes Status: Chronic Qualifiers: Diabetes mellitus type: type 2 Diabetes mellitus complication status: without complication Brief History of Present Illness: This is a 89-year-old gentleman with a history of hypertension diabetes and the congestive heart failure atrial fibrillation who was brought in emergency room after falling in prison today. The patient underwent evaluation the ER with the MRI a which is unremarkable for acute stroke. The patient was noticed to have a right side facial drop Hospital Course: The patient admitted hospital because of falls and altered mental status. MRI a study shows no evidence of acute stroke. The patient was giving intravenous fluid replacement with clinical improvement and today the patient mental status returned to his baseline according to the patient's . The patient have a high risk fall due to general frail and dementia. The patient was kept on aspirin. Further anticoagulations was not given due to the concern of high risk of bleeding. The patient is discharged to [facility] in stable condition. The patient developed no complication during this hospitalization. There is no evidence of urine tract infection Vital Signs/Physical Exam: Temp Pulse Resp BP Pulse Ox 98 F 100 H 18 136/68 99 06/18/17 16:00 06/18/17 16:00 06/18/17 16:00 06/18/17 16:00 06/18/17 16:00 General: Alert, In no apparent distress, Oriented x2 HEENT: Atraumatic, PERRLA, EOMI Neck: Supple, JVD not distended Respiratory: Clear to auscultation bilaterally, Normal air movement Cardiovascular: Regular rate/rhythm, Normal S1 S2 Gastrointestinal: Normal bowel sounds, No tenderness Musculoskeletal: No tenderness Integumentary: No rashes Neurological: Normal speech, Normal tone, Normal affect Lymphatics: No axilla or inguinal lymphadenopathy Laboratory Data at Discharge: WBC 10.0 K/uL (4.3-10.9) 06/17/17 08:45 Hgb 10.2 g/dL (13.6-17.9) L 06/17/17 08:45 Hct 31.1 % (39.6-49.0) L 06/17/17 08:45 Plt Count 237 K/uL (152-406) 06/17/17 08:45 PT 15.6 SECONDS (9.5-12.5) H 06/17/17 08:45 INR 1.32 06/17/17 08:45 APTT 28.9 SECONDS (24.3-36.9) 06/17/17 08:45 Sodium 140 mEq/L (135-145) 06/18/17 04:15 Potassium 3.5 mEq/L (3.6-5.0) L 06/18/17 04:15 BUN 20 mg/dL (6-20) 06/18/17 04:15 Creatinine 0.59 mg/dL (0.61-1.24) L 06/18/17 04:15 Glucose 171 mg/dL (65-120) H 06/18/17 04:15 Magnesium 1.6 mg/dL (1.8-2.5) L 06/17/17 08:45 Total Bilirubin 0.6 mg/dL (0.3-1.2) 06/18/17 04:15 AST 20 IU/L (10-42) 06/18/17 04:15 ALT 17 IU/L (10-60) 06/18/17 04:15 Alkaline Phosphatase 152 IU/L (42-121) H 06/18/17 04:15 B-Natriuretic Peptide 272 pg/ml (<=100) H 06/17/17 08:45 LDL Cholesterol Direct 75 mg/dl (<130) 06/17/17 15:58 Lipase 35 U/L (22-51) 06/17/17 08:45 Home Medications: Acetaminophen [Tylenol] 2 tab PO Q6H PRN 06/17/17 Aspirin Chewable [Aspirin Chewable*] 1 tab PO DAILY 06/17/17 Collagenase [Santyl Ointment*] 1 spencer TOP QSHIFT 06/17/17 Insulin -Regular Human [Novolin -R*] See Protocol SQ ACHS 06/17/17 Metformin HCl [Glucophage*] 500 mg PO BID 06/17/17 Metoprolol Tartrate 25 mg PO Q12H 06/17/17 Multivitamin/Iron/Folic Acid [Centrum Adults Tablet] 1 each PO DAILY 06/17/17 Travoprost (Benzalkonium) [Travatan 0.004% Eye Drop] 1 drop EACH EYE BEDTIME Carlton [Carlton*] 1 pkt PO BID #60 powd.pack 06/18/17 Medihoney [Medihoney Woundcare Gel*] 1 appl TOP DAILY #1 tube 06/18/17 New Medications: Carlton [Carlton*] 1 pkt PO BID #60 powd.pack Medihoney [Medihoney Woundcare Gel*] 1 appl TOP DAILY #1 tube Diet: ST recommended thin liquids and pureed solids. The following strict aspiration precautions and dysphagia strategies were recommended: upright with all PO intake, slow rate, alternate liquids and solids, small bites/sips, swallow 2x with solids, remain upright for 30 mins post PO intake. Activity: Bedrest Time spent managing pt's care (in minutes): 15
[2017-06-18 18:18] VITALS: O2SAT 95
[2017-06-18] MEDS ORDERED: JUVEN PACKET PO SCH (21:00)
[2017-06-18] MEDS ORDERED: GLUCERNA SHAKE 237 ML CAN PO SCH (21:00)
== END 2017-06-18 18:59 ==
LOC: ER 07:58 → INTOOBSV 09:44 → ERHOLD 09:44 → 4TH 12:19
PROVIDERS: ADMIT Internal Medicine Hematology & Oncology; ATTEND Internal Medicine Hematology & Oncology
DX: E86.0 Dehydration (principal); R41.82 Altered mental status, unspecified; I11.0 Hypertensive heart disease with heart failure; I50.32 Chronic diastolic (congestive) heart failure; I48.0 Paroxysmal atrial fibrillation; K74.60 Unspecified cirrhosis of liver; E11.9 Type 2 diabetes mellitus without complications; Z79.82 Long term (current) use of aspirin
CPT/HCPCS: 36415 ×2; 70450; 70551; 71045; 72125; 74230; 80048; 80053; 80076; 82550; 82553; 82962 ×5; 83690; 83721; 83735; 83880; 84484; 85025; 85610; 85730; 87086; 87088; 92610; 93005; 93306; 93880; 96361; 96365; 96368; 97163; 99285; G0378 ×2; J3475; J7030; 81003; 81015

== ENCOUNTER 2017-07-10 11:26 | Inpatient (IN) | payer OTHER ==
[2017-07-10 11:54] LABS: Absolute Lymphocytes (CBC) 0.2 K/uL (0.7-4.9); Absolute Monocytes 0.2 K/uL (0.1-1.3); Absolute Neutrophil 3.4 K/uL (1.8-8.0); Basophils % 0.1 % (0-1.3); Hematocrit 34.5 % (39.6-49.0); Lymphocytes % 5.5 % (15.3-44.8); MCH 28.2 pg (27.0-35.0); MCV 85.3 fL (80-100); MPV 9.4 fL (7.6-11.3); Monocytes % 6.4 % (3.3-12.3); RBC Red Blood Cell Count 4.04 M/uL (4.33-5.43)
[2017-07-10 12:01] LABS: Potassium 3.1 mEq/L (3.6-5.0)
[2017-07-10 12:07] LABS: Albumin 2.4 g/dL (3.2-5.5); Bilirubin Direct 0.4 mg/dL (0-0.2); Magnesium 1.9 mg/dL (1.8-2.5)
--- NOTE | 2017-07-10 12:08 | RAD REPORT ---
EXAM DESCRIPTION: RAD - Chest Single View - 07/10/2017 12:01 pm CLINICAL HISTORY: Chest pain. COMPARISON: 06/17/2017, 02/15/2017 FINDINGS: Portable technique limits examination quality. Linear atelectasis is present left mid lung. Ill-defined pleural-based opacity in the right apex note d, similar to comparative examinations. Diffuse COPD is identified. The heart is normal in size. No d isplaced fractures. IMPRESSION: Prominent COPD pattern is noted with areas of linear scarring or identified, similar to comparative studies.
[2017-07-10 12:12] LABS: Protime INR 1.49
[2017-07-10] MEDS ORDERED: NA CHLORIDE 0.9% 1,000 ML ONE ×2 (12:16→13:14)
[2017-07-10 12:47] LABS: Blood Morphology Comment NOT SEEN (NOT SEEN); Platelet Estimate ADEQ; Toxic Granulation PRESENT
--- NOTE | 2017-07-10 12:55 | EKG ---
Test Date: 2017-07-10 Test Time: 11:48:03 [employer] Hand: ARMEN MEASUREMENT RESULTS: Intervals: Rate: 154 TN: QRSD: 88 QT: 318 QTc: 509 [place]: P: TN: QRS: 20 T: 136 INTERPRETIVE STATEMENTS: Atrial fibrillation with rapid ventricular response Nonspecific ST and T wave abnormality Abnormal ECG Compared to ECG 06/17/2017 09:08:55 ST (T wave) deviation now present Electronically Signed On 07-10-17 12:55:07 CDT by Gilberto Ludwig
[2017-07-10] MEDS ORDERED: CEFOXITIN/SWI 1gm 1 GM/10 ML SYR ONE (12:57)
[2017-07-10] MEDS ORDERED: METRONIDAZOLE 500mg IVPB 500 MG/100 ML BAG IV ONE (12:57)
--- NOTE | 2017-07-10 13:25 | RAD REPORT ---
EXAM DESCRIPTION: CT - Abdomen Pelvis W Contrast - 07/10/2017 12:28 pm CLINICAL HISTORY: Abdominal pain and abdominal distention. COMPARISON: January 2017. TECHNIQUE: Computed axial tomography of the abdomen and pelvis was obtained. 100 mL Isovue 300 was a dministered intravenously. Oral contrast was not requested. FINDINGS: The evaluation of bowel is somewhat limited secondary to the lack of oral contrast macerat ion. A small right pleural effusion is present. A tiny left pleural effusion is seen. Patchy left lower lobe opacities are seen. A cirrhotic liver is seen. The spleen is unremarkable. The pancreas is atrophic. An adrenal mass is not seen. Renal cysts are present. Diverticula stem from the colon without evidence of diverticulitis. The rectum is mildly distended wi th stool. Low density is present throughout portions of the ascending and descending colon as well as almost the entire transverse colon. Hounsfield unit negative 230. This may indicate an unusual form of lipomatosis. Another consideration is that this represents extensive lipid excretion Jejunum and most of the ileum is moderately dilated. The distal ileum is decompressed. Free air is not seen. A small amount of ascites is present. IMPRESSION: 1. Moderate dilatation of jejunum and most of the ileum compatible with a mechanical obs truction. 2. Mild left lower lobe alveolar opacities consistent with pneumonia.
[2017-07-10] MEDS ORDERED: Levofloxacin500mg IV 500 MG/100 ML BAG IV ONE (13:38)
--- NOTE | 2017-07-10 14:07 | ER ---
Nurse's Notes [facility] Name: Johnny Jaramillo Age: 89 yrs Sex: Male : 1925 Arrival Date: 07/10/2017 Time: 11:31 Bed 2 Private MD: Diagnosis: Pneumonia due to other specified bacteria;Small bowel obstruction ;Dehydration Presentation: 07/10 11:30 Method Of Arrival: EMS: [facility] tw2 11:31 Presenting complaint: EMS states: pt from [facility], for low potassium 2.8, abdominal tw2 distention which is not normal, hx of a-fib, anemia, DM, HTN, HR in 140's, BGL 220, a\T\ox1, which is normal, and just started yesterday. Transition of care: patient was received from another setting of care (long-term care facility), [facility]. Onset of symptoms was July 10, 2017. Initial Sepsis Screen: Does the patient meet any 2 criteria? RR > 20 per min. No. Patient's initial sepsis screen is negative. Does the patient have a suspected source of infection? No. Patient's initial sepsis screen is negative. Care prior to arrival: None. 11:31 Acuity: HILDA 3 tw2 Historical: - Allergies: 11:47 Tape; tw2 - Home Meds: 11:47 aspirin 81 mg Oral TbEC 1 tab once daily [Active]; Centrum Silver 400-250 mcg Oral TbEC tw2 [Active]; Culturelle 10 billion cell Oral cap [Active]; Lasix 40 mg Oral tab 1 tab [Active]; Emilee-C with Bioflavonoids 500-200 mg Oral tab [Active]; metformin 500 mg Oral tab 1 tab 2 times per day [Active]; metoprolol tartrate 25 mg Oral tab 1 tab [Active]; potassium chloride 20 mEq/15 mL Oral liqd 15 mL once daily [Active]; Tylenol-Codeine #3 300-30 mg Oral tab 1 tab every 4-6 hours [Active]; Travatan Z 0.004 % ophthalmic drop 1 drop once daily [Active]; vitamin B complex Oral cap [Active]; - PMHx: 11:47 Atrial Fib; Anemia; Cancer; Cirrhosis; Diabetes - NIDDM; Glaucoma; Hypertension; tw2 radiation; UTI; - PSHx: 11:47 ear surgery; cancer removed; tw2 - Immunization history:: Adult Immunizations up to date. - Social history:: Smoking status: Patient/guardian denies using tobacco. Screenin:47 Abuse screen: Denies threats or abuse. Nutritional screening: No deficits noted. tw2 Tuberculosis screening: No symptoms or risk factors identified. Fall Risk None identified. Assessment: 11:43 General: Appears in no apparent distress. Behavior is calm. Pain: Unable to use pain tw2 scale. Patient appears nad. Neuro: Level of Consciousness is awake, obeys commands, Oriented to person. Cardiovascular: Heart tones S1 S2 Capillary refill < 3 seconds Patient's skin is warm and dry. Respiratory: Airway is patent Respiratory effort is even, unlabored, Respiratory pattern is regular, symmetrical, Breath sounds are clear bilaterally. GI: Abdomen is round distended, Bowel sounds hypoactive in right upper quadrant, left upper quadrant, right lower quadrant and left lower quadrant. : No signs and/or symptoms were reported regarding the genitourinary system. EENT: No signs and/or symptoms were reported regarding the EENT system. Derm: Skin is dry, Skin temperature is warm. 11:47 Reassessment: spouse at bedside at this time. tw2 12:30 Reassessment: Patient appears in no apparent distress at this time. Patient and/or tw2 family updated on plan of care and expected duration. Pain level reassessed. 13:07 Reassessment: Patient appears in no apparent distress at this time. Patient and/or tw2 family updated on plan of care and expected duration. Pain level reassessed. 14:00 Reassessment: Patient appears in no apparent distress at this time. Patient and/or tw2 family updated on plan of care and expected duration. Pain level reassessed. 14:43 Reassessment: Patient appears in no apparent distress at this time. Patient and/or tw2 family updated on plan of care and expected duration. Pain level reassessed. 15:23 Reassessment: Patient appears in no apparent distress at this time. Patient and/or tw2 family updated on plan of care and expected duration. Pain level reassessed. 15:40 Reassessment: Dr. Ludwig at bedside at this time. tw2 16:00 Reassessment: attempt to call report to the ICU, spoke with Almaz. Almaz states that the sg room has not yet been assigned to the pt for ICU, if i can please call back in about 10 mins. will attempt to call report in 10 mins. Vital Signs: 11:35 BP 105 / 70; Pulse 146; Resp 31; Temp 97.8(O); Pulse Ox 100% on R/A; Weight 65.77 kg tw2 (R); Height 6 ft. 0 in. (182.88 cm) (R); Pain 0/10; 12:35 BP 104 / 86; Pulse 133; Resp 30; Pulse Ox 100% on R/A; tw2 13:42 BP 100 / 86; Pulse 125; Resp 30; Pulse Ox 100% on R/A; jb1 14:08 BP 121 / 81; Pulse 136; Resp 32; Pulse Ox 98% on R/A; tw2 14:43 BP 109 / 75; Pulse 129; Resp 26; Pulse Ox 100% on R/A; tw2 15:24 BP 99 / 63; Pulse 131; Resp 27; Pulse Ox 100% on R/A; tw2 15:51 BP 101 / 64; Pulse 135; Resp 28; Pulse Ox 99% on R/A; tw2 11:35 Body Mass Index 19.67 (65.77 kg, 182.88 cm) tw2 ED Course: 11:30 Bed in low position. Side rails up X2. food handler on. Pulse ox on. NIBP on. tw2 provider at bedside at this time. 11:30 No provider procedures requiring assistance completed. Inserted saline lock: 20 gauge tw2 in right forearm, using aseptic technique. ,using aseptic technique. per WOODY Gordon Blood collected. 11:31 Patient arrived in ED. jr8 11:32 Lucas Ferrari PA is PHCP. jr8 11:32 Warren Lira MD is Attending Physician. jr8 11:32 Val Guillen RN is Primary Nurse. tw2 11:35 Triage completed. tw2 11:36 Arm band placed on. tw2 11:41 Lactate Sent. tw2 12:01 XRAY Chest (1 view) In Process Unspecified. EDMS 12:05 EKG done, by ED staff, reviewed by Lucas VALERO. jb1 12:14 Notified Nurse Practitioner and/or Physician Manager In Home of a critical lab result(s), pt Lactic aid 25.4 Notified primary nurse of elevated lactic acid. 12:[address] via stretcher. tw2 12:27 CT completed. Patient tolerated procedure well. Patient moved to CT via stretcher. sj Patient moved back from CT. 12:28 CT Abd/Pelvis - W/Contrast In Process Unspecified. EDMS 14:04 NGT: inserted 12 Fr. via left nare. verified placement of air over stomach, verified sg return of gastric contents, to intermittent suction. Returned gastric contents. Patient tolerated well. 14:06 Marisa Mendez MD is Hospitalizing Provider. jr 15:06 Straight cath inserted, using sterile technique, 18 Fr. Specimen obtained. Returned tw2 adan urine. Patient tolerated well. Swing [employer] served as machinist general. 15:25 Patient admitted, IV remains in place. tw2 Administered Medications: 12:20 Drug: NS 0.9% 1000 ml Route: IV; Rate: 1 bolus; Site: right forearm; tw2 14:06 Follow up: Response: No adverse reaction; IV Status: Completed infusion; IV Intake: tw2 1000ml 13:00 Drug: Mefoxin 1 grams {Note: IVP available only from pharmacy.} Route: IVPB; Infused tw2 Over: 5 mins; Site: right forearm; 13:06 Follow up: Response: No adverse reaction; IV Status: Completed infusion tw2 13:05 Drug: Flagyl 500 mg Volume: 100 ml; Route: IVPB; Rate: 200 ml/hr; Infused Over: 30 tw2 mins; Site: right forearm; 14:06 Follow up: Response: No adverse reaction; IV Status: Completed infusion tw2 14:07 Drug: NS 0.9% 1000 ml Route: IV; Rate: 1000 ml; Site: right forearm; tw2 15:22 Follow up: Response: No adverse reaction; IV Status: Completed infusion; IV Intake: tw2 1000ml 14:07 Drug: LevaQUIN 500 mg Volume: 100 ml; Route: IVPB; Infused Over: 60 mins; Site: right tw2 forearm; 15:22 Follow up: Response: No adverse reaction; IV Status: Completed infusion tw2 14:10 Drug: Lopressor 5 mg Route: IVP; Site: right forearm; tw2 14:44 Follow up: Response: No adverse reaction; No adverse reaction, HR tw2 Intake: 14:06 IV: 1000ml; Total: 1000ml. tw2 15:22 IV: 1000ml; Total: 2000ml. tw2 Outcome: 14:07 Decision to Hospitalize by Provider. jr8 15:30 Admitted to Med/surg accompanied by tech, via stretcher, room 220, Report called to tw2 WOODY Osei 15:30 Condition: stable 15:30 Instructed on the need for admit. 15:52 Patient left the ED. tw2 Signatures: Dispatcher [employer] EDMS Taras Obando jb1 Otis Veras, RN RN sg Lisa Santizo RN RN pt Cee Ch Josh, PA PA jr8 Val Guillen RN RN tw2 Corrections: (The following items were deleted from the chart) 11:42 11:31 Method Of Arrival: EMS: [facility] tw2 tw2 12:24 11:30 Inserted saline lock: 20 gauge in right forearm, using aseptic technique. Blood tw2 collected. tw2 14:44 14:16 BP 121 / 81; Pulse 121bpm; Resp 27bpm; Pulse Ox 98% RA; tw2 tw2 15:07 15:06 Straight cath inserted, using sterile technique, 18 Fr. Specimen obtained. tw2 Returned adan urine. Patient tolerated well. tw2 15:26 11:31 Presenting complaint: EMS states: pt from [facility], for low potassium 2.8, tw2 abdominal distention which is not normal, hx of a-fib, anemia, DM, HTN, HR in 140's, BGL 220, a\T\ox1, which is normal, tw2
--- NOTE | 2017-07-10 14:07 | EDPHYS ---
Physician Documentation [facility] Name: Johnny Jaramillo Age: 89 yrs Sex: Male : 1925 Arrival Date: 07/10/2017 Time: 11:31 Bed 2 Private MD: ED Physician Warren Lira HPI: 07/10 12:20 This 89 yrs old Male presents to ER via EMS with complaints of Abnormal Lab jr8 Results, Abdominal Distention, Irregular Pulse. 12:20 Patient came via EMS for [place] facility for low potassium and abdominal distension which jr8 normally does not occur. A\T\O x1 which is baseline for patient . Onset: The symptoms/episode began/occurred at an unknown time. Severity of symptoms: At their worst the symptoms were moderate in the emergency department the symptoms are unchanged. It is unknown whether or not the patient has had similar symptoms in the past. It is unknown whether or not the patient has recently seen a physician. Historical: - Allergies: 11:47 Tape; tw2 - Home Meds: 11:47 aspirin 81 mg Oral TbEC 1 tab once daily [Active]; Centrum Silver 400-250 mcg Oral TbEC tw2 [Active]; Culturelle 10 billion cell Oral cap [Active]; Lasix 40 mg Oral tab 1 tab [Active]; Emilee-C with Bioflavonoids 500-200 mg Oral tab [Active]; metformin 500 mg Oral tab 1 tab 2 times per day [Active]; metoprolol tartrate 25 mg Oral tab 1 tab [Active]; potassium chloride 20 mEq/15 mL Oral liqd 15 mL once daily [Active]; Tylenol-Codeine #3 300-30 mg Oral tab 1 tab every 4-6 hours [Active]; Travatan Z 0.004 % ophthalmic drop 1 drop once daily [Active]; vitamin B complex Oral cap [Active]; - PMHx: 11:47 Atrial Fib; Anemia; Cancer; Cirrhosis; Diabetes - NIDDM; Glaucoma; Hypertension; tw2 radiation; UTI; - PSHx: 11:47 ear surgery; cancer removed; tw2 - Immunization history:: Adult Immunizations up to date. - Social history:: Smoking status: Patient/guardian denies using tobacco. ROS: 12:20 Eyes: Negative for injury, pain, redness, and discharge, ENT: Negative for injury, jr8 pain, and discharge, Neck: Negative for injury, pain, and swelling, Cardiovascular: Negative for chest pain, palpitations, and edema, Respiratory: Negative for shortness of breath, cough, wheezing, and pleuritic chest pain, Back: Negative for injury and pain, MS/Extremity: Negative for injury and deformity, Skin: Negative for injury, rash, and discoloration, Neuro: Negative for headache, weakness, numbness, tingling, and seizure. 12:20 Abdomen/GI: Positive for abdominal distension, Negative for abdominal pain, nausea, vomiting, and diarrhea, hematemesis, black/tarry stool, bowel incontinence, flatulence. Exam: 12:20 Eyes: Pupils equal round and reactive to light, extra-ocular motions intact. Lids and jr8 lashes normal. Conjunctiva and sclera are non-icteric and not injected. Cornea within normal limits. Periorbital areas with no swelling, redness, or edema. ENT: Nares patent. No nasal discharge, no septal abnormalities noted. Tympanic membranes are normal and external auditory canals are clear. Oropharynx with no redness, swelling, or masses, exudates, or evidence of obstruction, uvula midline. Mucous membranes moist. Neck: Trachea midline, no thyromegaly or masses palpated, and no cervical lymphadenopathy. Supple, full range of motion without nuchal rigidity, or vertebral point tenderness. No Meningismus. Cardiovascular: Regular rate and rhythm with a normal S1 and S2. No gallops, murmurs, or rubs. Normal PMI, no JVD. No pulse deficits. Respiratory: Lungs have equal breath sounds bilaterally, clear to auscultation and percussion. No rales, rhonchi or wheezes noted. No increased work of breathing, no retractions or nasal flaring. Back: No spinal tenderness. No costovertebral tenderness. Full range of motion. Skin: Warm, dry with normal turgor. Normal color with no rashes, no lesions, and no evidence of cellulitis. MS/ Extremity: Pulses equal, no cyanosis. Neurovascular intact. Full, normal range of motion. Neuro: Awake and alert, GCS 15, oriented to person. Cranial nerves II-XII grossly intact. Motor strength 5/5 in all extremities. Sensory grossly intact. 12:20 Abdomen/GI: Inspection: distension, that is mild, Bowel sounds: active, Palpation: soft, in all quadrants, nontender, in all quadrants, voluntary guarding, is not appreciated, involuntary guarding, is not appreciated, no appreciated organomegaly, Indicators: McBurney's point is not tender, Larsen's sign is negative, Rovsing's sign is negative, Liver: tenderness, is not appreciated. Vital Signs: 11:35 BP 105 / 70; Pulse 146; Resp 31; Temp 97.8(O); Pulse Ox 100% on R/A; Weight 65.77 kg tw2 (R); Height 6 ft. 0 in. (182.88 cm) (R); Pain 0/10; 12:35 BP 104 / 86; Pulse 133; Resp 30; Pulse Ox 100% on R/A; tw2 13:42 BP 100 / 86; Pulse 125; Resp 30; Pulse Ox 100% on R/A; jb1 14:08 BP 121 / 81; Pulse 136; Resp 32; Pulse Ox 98% on R/A; tw2 14:43 BP 109 / 75; Pulse 129; Resp 26; Pulse Ox 100% on R/A; tw2 15:24 BP 99 / 63; Pulse 131; Resp 27; Pulse Ox 100% on R/A; tw2 15:51 BP 101 / 64; Pulse 135; Resp 28; Pulse Ox 99% on R/A; tw2 11:35 Body Mass Index 19.67 (65.77 kg, 182.88 cm) tw2 MDM: 11:32 Patient medically screened. [facility] 14:05 Data reviewed: vital signs, nurses notes, lab test result(s), EKG, radiologic studies, [facility] CT scan, plain films, and as a result, I will admit patient. Data interpreted: Pulse oximetry: on room air is 100 %. Interpretation: normal. Counseling: I had a detailed discussion with the patient and/or guardian regarding: the historical points, exam findings, and any diagnostic results supporting the discharge/admit diagnosis, lab results, radiology results, the need for further work-up and treatment in the hospital. 07/10 11:33 Order name: Basic Metabolic Panel [facility] 07/10 11:33 Order name: BNP; Complete Time: 12:20 [facility] 07/10 11:33 Order name: CBC with Diff; Complete Time: 12:54 [facility] 07/10 11:33 Order name: CPK [facility] 07/10 11:33 Order name: LFT's; Complete Time: 12:09 [facility] 07/10 11:33 Order name: Magnesium; Complete Time: 12:09 [facility] 07/10 11:33 Order name: PT-INR; Complete Time: 12:20 [facility] 07/10 11:33 Order name: Troponin (emerg Dept Use Only); Complete Time: 12:10 [facility] 07/10 11:33 Order name: Blood Culture Adult (2) [facility] 07/10 11:33 Order name: Lactate; Complete Time: 12:20 [facility] 07/10 11:33 Order name: Basic Metabolic Panel; Complete Time: 12:09 [facility] 07/10 11:33 Order name: Creatine Phosphokinase; Complete Time: 12:09 [facility] 07/10 12:45 Order name: Manual Differential; Complete Time: 12:54 [facility] 07/10 11:33 Order name: XRAY Chest (1 view); Complete Time: 12:09 [facility] 07/10 11:33 Order name: EKG; Complete Time: 11:33 [facility] 07/10 12:10 Order name: CT Abd/Pelvis - W/Contrast [facility] 07/10 14:36 Order name: CONS Physician Consult [facility] 07/10 14:52 Order name: CONS Physician Consult [facility] 07/10 14:52 Order name: Chest Single View [facility] 07/10 14:52 Order name: Chest Single View [facility] 07/10 14:52 Order name: Chest Single View [facility] 07/10 14:52 Order name: Chest Single View [facility] 07/10 15:12 Order name: Urine Dipstick--Ancillary (enter results) 07/10 11:33 Order name: Cardiac monitoring; Complete Time: 11:41 [facility] 07/10 11:33 Order name: EKG - Nurse/Tech; Complete Time: 12:05 [facility] 07/10 11:33 Order name: IV Saline Lock; Complete Time: 11:41 [facility] 07/10 11:33 Order name: Labs collected and sent; Complete Time: 11:41 [facility] 07/10 11:33 Order name: O2 Per Protocol; Complete Time: 11:41 [facility] 07/10 11:33 Order name: O2 Sat Monitoring; Complete Time: 11: [facility] 07/10 13:26 Order name: NG Tube; Complete Time: 14:07 jr8 07/10 14:44 Order name: Straight Cath - Urine; Complete Time: 15:28 tw2 07/10 14:52 Order name: NPO EDMS Administered Medications: 12:20 Drug: NS 0.9% 1000 ml Route: IV; Rate: 1 bolus; Site: right forearm; tw2 14:06 Follow up: Response: No adverse reaction; IV Status: Completed infusion; IV Intake: tw2 1000ml 13:00 Drug: Mefoxin 1 grams {Note: IVP available only from pharmacy.} Route: IVPB; Infused tw2 Over: 5 mins; Site: right forearm; 13:06 Follow up: Response: No adverse reaction; IV Status: Completed infusion tw2 13:05 Drug: Flagyl 500 mg Volume: 100 ml; Route: IVPB; Rate: 200 ml/hr; Infused Over: 30 tw2 mins; Site: right forearm; 14:06 Follow up: Response: No adverse reaction; IV Status: Completed infusion tw2 14:07 Drug: NS 0.9% 1000 ml Route: IV; Rate: 1000 ml; Site: right forearm; tw2 15:22 Follow up: Response: No adverse reaction; IV Status: Completed infusion; IV Intake: tw2 1000ml 14:07 Drug: LevaQUIN 500 mg Volume: 100 ml; Route: IVPB; Infused Over: 60 mins; Site: right tw2 forearm; 15:22 Follow up: Response: No adverse reaction; IV Status: Completed infusion tw2 14:10 Drug: Lopressor 5 mg Route: IVP; Site: right forearm; tw2 14:44 Follow up: Response: No adverse reaction; No adverse reaction, HR tw2 Disposition: 07/10/17 14:07 Hospitalization ordered by Marisa Mendez for Inpatient Admission. Preliminary diagnosis are Pneumonia due to other specified bacteria, Small bowel obstruction , Dehydration. - Bed requested for Telemetry/MedSurg (Inpatient). - Status is Inpatient Admission. tw2 - Condition is Fair. - Problem is new. - Symptoms are unchanged. UTI on Admission? No Addendum: 07/25/2017 19:45 Co-signature as Attending Physician, Warren Lira MD I agree with the assessment and k dr plan of care. Signatures: Dispatcher [employer] EDDC Jennifer Chaudhry Kevin, MD MD kdr Lucas Ferrari PA PA jr8 Val Guillen RN RN tw2 Corrections: (The following items were deleted from the chart) 07/10 12:23 12:20 Eyes: Pupils equal round and reactive to light, extra-ocular motions intact. Lids jr8 and lashes normal. Conjunctiva and sclera are non-icteric and not injected. Cornea within normal limits. Periorbital areas with no swelling, redness, or edema. ENT: Nares patent. No nasal discharge, no septal abnormalities noted. Tympanic membranes are normal and external auditory canals are clear. Oropharynx with no redness, swelling, or masses, exudates, or evidence of obstruction, uvula midline. Mucous membranes moist. Neck: Trachea midline, no thyromegaly or masses palpated, and no cervical lymphadenopathy. Supple, full range of motion without nuchal rigidity, or vertebral point tenderness. No Meningismus. Cardiovascular: Regular rate and rhythm with a normal S1 and S2. No gallops, murmurs, or rubs. Normal PMI, no JVD. No pulse deficits. Respiratory: Lungs have equal breath sounds bilaterally, clear to auscultation and percussion. No rales, rhonchi or wheezes noted. No increased work of breathing, no retractions or nasal flaring. Back: No spinal tenderness. No costovertebral tenderness. Full range of motion. Skin: Warm, dry with normal turgor. Normal color with no rashes, no lesions, and no evidence of cellulitis. MS/ Extremity: Pulses equal, no cyanosis. Neurovascular intact. Full, normal range of motion. Neuro: Awake and alert, GCS 15, oriented to person, place, time, and situation. Cranial nerves II-XII grossly intact. Motor strength 5/5 in all extremities. Sensory grossly intact. Cerebellar exam normal. Normal gait. jr8 12:45 12:07 CBC Smear Scan ordered. EDMS EDMS 15:19 14:07 Hospitalization Ordered by Marisa Mendez MD for Inpatient Admission. Preliminary bd diagnosis is Pneumonia due to other specified bacteria; Small bowel obstruction ; Dehydration. Bed requested for Telemetry/MedSurg (Inpatient). Status is Inpatient Admission. Condition is Fair. Problem is new. Symptoms are unchanged. UTI on Admission? No. jr8 15:52 15:19 07/10/2017 14:07 Hospitalization Ordered by Marisa Mendez MD for Inpatient tw2 Admission. Preliminary diagnosis is Pneumonia due to other specified bacteria; Small bowel obstruction ; Dehydration. Bed requested for Telemetry/MedSurg (Inpatient). Status is Inpatient Admission. Condition is Fair. Problem is new. Symptoms are unchanged. UTI on Admission? No. bd
[2017-07-10] MEDS ORDERED: METOPROLOL TARTRATE 5 MG/5 ML INJ IV ONE (14:11)
[2017-07-10] MEDS ORDERED: ONDANSETRON 4 MG/2 ML VIAL IV PRN (14:46)
[2017-07-10] MEDS ORDERED: ACETAMINOPHEN 500 MG TAB PO PRN (14:46)
--- NOTE | 2017-07-10 16:35 | P.HP ---
Certification for Inpatient Patient admitted to: Inpatient With expected LOS: >2 Midnights Patient will require the following post-hospital care: None Practitioner: I am a practitioner with admitting privileges, knowledge of patient current condition, hospital course, and medical plan of care. Services: Services provided to patient in accordance with Admission requirements found in Title 42 Section 412.3 of the Code of Federal Regulations Patient History Date of Service: 07/10/17 Primary Care Provider: Resident at [facility] Reason for admission: SBO History of Present Illness: This is a 89-year-old male with significant past medical history of type 2 diabetes chronic kidney disease, hypertension, anemia atrial fibrillation dementia who lives at [facility] who presented to the ER after having 1 week of poor appetite. Patient is alert and oriented x1 at baseline his at bedside provided most of the information. By stated that a week ago patient started declining in terms of dietary habits and has not been able to get out of his bed like she used to. Patient has not had anything to eat or drink since past couple of days as well. Patient's got worried and thus decided to bring him to the ER. Patient's also noted that initially patient was having a bowel movement at the senior living however she has no idea if she has had any other bowel movements since past 2 days. She denies having any nausea vomiting or any other associated symptoms that she has noticed a half. Patient's abdomen was distended last night and does a great he is more concerned and thus he was sent over to the hospital for further workup. In the ER patient had an abdominal CT scan done which was consistent with small- bowel obstruction and was found to be in AFib with RVR along with pneumonia on the chest x-ray. Medicine was consulted for further workup and admission. Allergies adhesive tape Allergy (Verified 05/07/16 10:03) Rash Home Medications: Acetaminophen [Tylenol] 2 tab PO Q6H PRN 06/17/17 Aspirin Chewable [Aspirin Chewable*] 1 tab PO DAILY 06/17/17 Collagenase [Santyl Ointment*] 1 spencer TOP QSHIFT 06/17/17 Insulin -Regular Human [Novolin -R*] See Protocol SQ ACHS 06/17/17 Metformin HCl [Glucophage*] 500 mg PO BID 06/17/17 Metoprolol Tartrate 25 mg PO Q12H 06/17/17 Multivitamin/Iron/Folic Acid [Centrum Adults Tablet] 1 each PO DAILY 06/17/17 Travoprost (Benzalkonium) [Travatan 0.004% Eye Drop] 1 drop EACH EYE BEDTIME Carlton [Carlton*] 1 pkt PO BID #60 powd.pack 06/18/17 Medihoney [Medihoney Woundcare Gel*] 1 appl TOP DAILY #1 tube 06/18/17 - Past Medical/Surgical History Diabetic: Yes -: Glaucoma -: A-fib -: Hepatitis -: HTN -: DM -: lung cancer -: anemia -: Lung CA- radiation -: Right Ear CA surgery -: tonsillectomy - Family History Mother -: Hypertension Father -: Cancer Notes: skin cancer - Social History Alcohol use: No CD- Drugs: No Caffeine use: No Review of Systems 10-point ROS is otherwise unremarkable Physical Examination - Vital Signs Temperature: 97.8 F Blood Pressure: 101/64 Pulse: 135 Respirations: 28 - Physical Exam General: In no apparent distress, Oriented x1, Demented HEENT: Atraumatic Neck: Supple Respiratory: Normal air movement, Crackles/rales, Inspiratory wheezes Cardiovascular: Normal S1 S2, Irregular heart rate/rhythm Gastrointestinal: Hypoactive, Distended, Tenderness Musculoskeletal: No tenderness Integumentary: No rashes Neurological: Normal affect, Abnormal speech, Abnormal strength Lymphatics: No axilla or inguinal lymphadenopathy - Studies Laboratory Data (last 24 hrs) 07/10/17 11:30: PT 17.7 H, INR 1.49 07/10/17 11:30: WBC 3.9 L, Hgb 11.4 L, Hct 34.5 L, Plt Count 270 07/10/17 11:30: B-Natriuretic Peptide 176 H 07/10/17 11:30: Sodium 140, Potassium 3.1 L, BUN 73 H, Creatinine 1.21, Glucose 181 H, Magnesium 1.9, Total Bilirubin 1.0, AST 23, ALT 14, Alkaline Phosphatase 126 H Assessment and Plan - Problems (Diagnosis) (1) Sepsis Current Visit: Yes Status: Acute Plan: Sepsis Most likely 2.2 to PNA vs SBO -Currently on IV cipro and flagyl. -Blood, urine and sputum culture pending -lab in AM -Xray in AM as well Qualifiers: Sepsis type: sepsis due to unspecified organism Qualified Code(s): A41.9 - Sepsis, unspecified organism (2) SBO (small bowel obstruction) Current Visit: Yes Status: Acute Plan: SBO on the abd CT -NPO, IV fluids and Surgery consulted. (3) PNA (pneumonia) Current Visit: Yes Status: Acute Plan: PNA on the xray. -IV cipro -Procal Pending -Xray in the AM Qualifiers: Pneumonia type: due to unspecified organism Laterality: unspecified laterality Lung location: unspecified part of lung Qualified Code(s): J18.9 - Pneumonia, unspecified organism (4) Atrial fibrillation with RVR Current Visit: Yes Status: Acute Plan: AFib with RVR -Lopressor given in the ER -Will restart home medication -IF still in RVR will increase the dose of the medication -Cardiology consult if needed. 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; Z79.4 - FPC (current) use of insulin; Z79.4 - FPC (current) use of insulin; Z79.4 - FPC (current) use of insulin (7) Essential hypertension Onset Date: 06/18/17 Current Visit: No Status: Chronic (8) Dementia Current Visit: Yes Status: Chronic Qualifiers: Dementia type: unspecified type Dementia behavioral disturbance: without behavioral disturbance Qualified Code(s): F03.90 - Unspecified dementia without behavioral disturbance Discharge Plan: Senior Living Plan to discharge in: 24 Hours - Advance Directives Does patient have a Living Will: No Does patient have a Durable POA for Healthcare: No - Code Status/Comfort Care Code Status Assessed: Yes Code Status: Do Not Resuscitate Critical Care: Yes
[2017-07-10 16:46] LABS: Urine Blood 1+ (NEG); Urine Glucose NEGATIVE (NEG); Urine Protein 1+ (NEG)
[2017-07-10] MEDS ORDERED: DIGOXIN 0.25 MG/ML AMP IV SCH (17:00)
[2017-07-10] MEDS: NA CHLORIDE 0.9% 1,000 ML IV SCH (17:07)
[2017-07-10] MEDS: INSULIN -REGULAR HUMAN 50 UNIT/0.5 ML ML SQ SCH ×2 (17:47→20:40)
[2017-07-10] MEDS: METOPROLOL TAR 25 MG TAB PO SCH ×2 (17:51→20:39)
[2017-07-10] MEDS: METRONIDAZOLE 500mg IVPB 500 MG/100 ML BAG IV SCH (18:04)
[2017-07-10] MEDS: KCL 20 MEQ/100 mL IVPB 20 MEQ/100 ML BAG IV SCH ×2 (19:58→21:37)
[2017-07-10] MEDS: CIPROFLOXACIN 400mg IV 400 MG/200 ML BAG IV SCH (20:39)
[2017-07-10] MEDS: PANTOPRAZOLE 40 MG INJ IVP SCH (20:39)
--- NOTE | 2017-07-10 21:30 | CON ---
Reason For Consult: AFib. History Of Present Illness: Mr. Jaramillo is a gentleman who has severe and many medical problems. He lives in a fci. He has severe dementia. He is in chronic atrial fibrillation. He has c irrhosis of the liver and failure to thrive. In the last several weeks, he has not been eating much. He has to be fed by hand and when he does he eats very little that usually once or twice a day. Hi s abdomen has been increasing in girth and he seems to have been coughing some more. Since he has be en in the emergency room, he has been found to have a very rapid heart rate and AFib. He has been fo und to have likely pneumonia and perhaps small bowel obstruction. All of the loops of bowel are immo bile. There are air-fluid levels throughout the large and small intestine. There is not ascites. T here is cirrhosis of the liver. He also has diabetes, hypertension, glaucoma, and a history of cance r. I believe it is squamous cell cancer of the skin, but most of the details at that level are not a vailable at the present time. The patient was on a blood thinner, but in 2013, he had GI bleeding. No way to eliminate the GI bleeding was ever found, so he deemed at that point intolerant of any anti coagulation. He lives with a [id number] out of hospital order and he is completely bedridden , has not been out of bed in some time. We have one list of medicines from May that is probably ac curate. Medications: There was aspirin, multivitamin a probiotic pill, Lasix, metformin, metoprolol, Travata n eye drops, and Tylenol with codeine. Physical Examination: General: Mr. Jaramillo appears to be chronically severely ill. His eyes are open, but he does not e ngage in any conversation, does not respond to any questions. All the history comes from his wh o is with him and spends a lot of time with him in the fci. Abdomen: Distended. I do not detect a fluid wave. Nontender. Heart: Irregularly irregular. Lungs: Reveal diffuse fine crackles and sounds like pulmonary fibrosis type. Vital Signs: His heart rate was 130 when I examined him, and his most recent blood pressure was 99/6 3, O2 saturation 100% on room air. Impression And Plan: The patient should probably have his heart controlled by giving him some IV flu ids. He may be mildly volume depleted. Of course, he is going to get antibiotics to treat what look s like pneumonia with his blood pressure that low, there is really any medication that is safe to giv e him that can reduce his heart rate, but he does seem to be tolerating the heart rate of 130 well, s o I do not want to over react to the heart rate of 130 and make his blood pressure low or thrown into heart failure. I think we can reestablish the low-dose of beta-blockers. Give him IV fluids to nima ydrate him and I will bet his heart rate will be much better in the morning. I suspect antibiotic tr eatment will probably get him into his previous state of chronically ill, very demented, and bound to life living in a bed in a fci. SAILAJA/MOSHE Voice ID: [id number] Report ID: [id number]
[2017-07-11] MEDS: METRONIDAZOLE 500mg IVPB 500 MG/100 ML BAG IV SCH ×3 (00:03→17:28)
--- NOTE | 2017-07-11 01:28 | CON ---
Date of Consultation: 07/10/2017 Brief History Of Present Illness: The patient is an 89-year-old male, known to me from pre vious clinic visits where I took care of several back cysts at that time. He presents now with a com pletely different problem. He has a history significant for diabetes, CKD, hypertension, anemia, atr ial fibrillation, and dementia, who lives at [facility], who presented to ER after britton ng approximately 1 week of poor appetite. By report, his stated that he had 3 days of increased abdominal pain and complaints of abdominal pain worsening over 3 days prior to his admission here. She was concerned at that time and as such, brought him to the emergency room. She is not aware of a ny bowel function other than 3 days ago, but has not been following him closely enough to be aware of any bowel function between the last 3 days and today. She is not aware of any nausea or vomiting. The patient is unable to contribute to the history as he has dementia. He speaks and answers simple questions appropriately, but does not have any insight into his medical history or current situation. Past Medical History: Significant for as above, diabetes, CKD, hypertension, anemia, atrial fibrilla tion, rate controlled; dementia, glaucoma, hepatitis, lung cancer. He had radiation for the lung can cer. Past Surgical History: Include right ear cancer surgery, tonsillectomy, and 2 back surgeries for rem oval of simple cysts. Family History: Mother had hypertension. Father had skin cancer. He denies smoking, alcohol, recre ational drug use, and by report, this is corroborated. Allergies: HE HAS AN ALLERGY TO ADHESIVE TAPE. Home Medications: Include Tylenol, aspirin, Santyl for wounds to his legs, metformin, metoprolol, Ce ntrum, Travoprost, Jantoven, MediHoney for his wounds. Review of Systems: Ten-point review of systems, the patient is unable to contribute as he has dementia. Physical Examination: Vital Signs: At the time of my examination, his BMI is 19.7, blood pressure is 101/76, his pulse is 32, respiratory rate 28, temperature 97.8. General: He is awake and alert. He is oriented x1. HEENT: He is normocephalic. His sclerae are anicteric. His mucous membranes are somewhat dry. His oropharynx is otherwise clear. Neck: Supple with no JVD. Chest: Normal expansion and excursion. Cardiovascular: Irregular rate, irregular rhythm with tachycardia. Pulmonary: Decreased breath sounds bilaterally. Abdomen: Soft. Mild distention. Nontender. No rebound. No focal peritonitis. Pelvis: Stable. Extremities: He has wounds to bilateral heels. His back has no wounds at this time. Skin: Warm and dry otherwise. Laboratory Data: He had laboratory exam, reveals a white blood cell count of 3.9, hemoglobin is 11.4 , hematocrit 34.5, platelet count is 270, neutrophils are 88%, band neutrophils are 13. His PT 17.7, INR 1.49. Sodium 140, potassium 3.1, chloride 97, carbon dioxide 29, BUN 73, creatinine 1.21, gluco se is 181. Lactic acid was 25.4 on admission, now 15.3 at noon. Calcium 8.5, magnesium 1.9, total b ilirubin 1.0, AST 23, ALT 14, alk phos is 126. Procalcitonin 1.51. UA showed 1+ blood, 1+ ketones, trace leukocyte esterase, and 1+ protein. He had imaging performed, which included a CT scan of the abdomen and pelvis. The official read states that he has a moderate dilatation of the jejunum and mo st of the ileum compatible with mechanical obstruction, mild left lower lobe alveolar opacities consi stent with pneumonia. He has a cirrhotic liver and a small right pleural effusion is present and a t iny left pleural effusion seen. Assessment: 1.This is an 89-year-old male with multiple medical problems including current atrial fibrillation w ith rapid ventricular response, maintained on medications as described. 2.He has a small bowel obstruction. Plan: 1.I recommend NG tube decompression. 2.Serial abdominal exams. 3.IV fluid resuscitation. 4.Electrolyte correction. 5.I will discuss with his the surgical options. As the patient has advanced age and concurrent medical problems, he would not be a good surgical candidate at this time and as such, I recommend me dical optimization prior to any surgical intervention should it not be an emergent need and should th e patient's agree with any surgical intervention as he is currently do not resuscitate by order. We will get this clarified and I will follow along with you. Thank you for this interesting consult. TORO/MOSHE Voice ID: [id number] Report ID: [id number]
[2017-07-11] MEDS: NA CHLORIDE 0.9% 1,000 ML IV SCH ×3 (04:20→17:40)
[2017-07-11 05:29] LABS: Absolute Lymphocytes (CBC) 0.3 K/uL (0.7-4.9); Absolute Monocytes 0.3 K/uL (0.1-1.3); Absolute Neutrophil 2.9 K/uL (1.8-8.0); Basophils % 0.2 % (0-1.3); Eosinophils % 0.8 % (0-4.4); Hematocrit 32.3 % (39.6-49.0); Lymphocytes % 8.8 % (15.3-44.8); MCH 28.6 pg (27.0-35.0); MCV 86.2 fL (80-100); MPV 9.1 fL (7.6-11.3); Monocytes % 7.3 % (3.3-12.3); RBC Red Blood Cell Count 3.75 M/uL (4.33-5.43)
[2017-07-11] MEDS: METOPROLOL TAR 25 MG TAB PO SCH ×2 (06:07→17:26)
[2017-07-11 06:22] LABS: Albumin 1.9 g/dL (3.2-5.5); Bilirubin Total 0.9 mg/dL (0.3-1.2); Magnesium 1.7 mg/dL (1.8-2.5); Phosphorus 2.3 mg/dL (2.5-4.3); Potassium 3.4 mEq/L (3.6-5.0); Protein, Total 5.8 g/dL (6.0-8.3)
[2017-07-11] MEDS ORDERED: MAGNESIUM SULFATE 1 gm IVPB 1 GM/100 ML BAG IV ONE (07:00)
[2017-07-11] MEDS ORDERED: POTASSIUM PHOS IN 0.9 % NACL 15 MMOL/250 ML BAG IV ONE ×2 (07:00→08:30)
[2017-07-11] MEDS ORDERED: KCL 20 MEQ/100 mL IVPB 20 MEQ/100 ML BAG IV SCH (07:00)
[2017-07-11] MEDS: INSULIN -REGULAR HUMAN 50 UNIT/0.5 ML ML SQ SCH ×4 (07:30→21:00)
[2017-07-11] MEDS: CIPROFLOXACIN 400mg IV 400 MG/200 ML BAG IV SCH ×2 (08:10→21:19)
[2017-07-11] MEDS: PANTOPRAZOLE 40 MG INJ IVP SCH ×2 (08:12→21:19)
[2017-07-11] MEDS ORDERED: GLUCAGON 1 MG/VIAL IM PRN (08:48)
[2017-07-11] MEDS ORDERED: D50W 25 GM/50 ML SYRINGE IV PRN (08:48)
--- NOTE | 2017-07-11 08:53 | RAD REPORT ---
EXAM DESCRIPTION: Jaren Single View07/11/2017 6:51 am CLINICAL HISTORY: Chest pain COMPARISON: July 10, 2017 FINDINGS: No change has occurred in the bilateral pulmonary opacities. The nuno are blurred. The hea rt is mildly enlarged IMPRESSION: No change in bilateral pulmonary opacities. These probably represent areas of inflammati on/scarring and atelectasis. Infection and neoplasm are possible but probably less likely. Followup t o reassess stability is recommended The nuno are blurred probably indicating minimal interstitial pulmonary edema
[2017-07-11] MEDS ORDERED: DIGOXIN 0.25 MG/ML AMP IV SCH (09:00)
[2017-07-11 16:29] VITALS: BMI 21.5
--- NOTE | 2017-07-11 16:49 | PN ---
Subjective: Currently, he lying in bed. He looks comfortable. His abdomen is not distended. No fe an. No chills overnight. No chest pain. He is still confused at baseline. Objective: Vital Signs: Blood pressure is 105/65, respiratory rate 18, pulse 117, and temperature 9 7.9. General: He is alert and oriented x1. Does not look in any distress. HEENT: Atraumatic, normocephalic. Oral mucosa is moist. Neck: Supple. No JVD. Heart: Regular rate and rhythm. No gallop. Chest: Clear to auscultation with basilar crackles. Poor air entry. Abdomen: Soft. Minimal distention. No rebound. No guarding. Positive bowel sounds. Extremities: No clubbing, cyanosis, or edema. Neurologic: Deferred. Laboratory Data: Lab showed CBC with white blood cells 3.5, hemoglobin 10.7, and platelets at 177. Chemistry showed sodium 142, potassium 3.4, BUN 52, creatinine 0.9, glucose 147, calcium 7.7, phospho britni 2.3, and magnesium 1.7. Assessment And Plan: 1.Small bowel obstruction on CT scan. Better. Continue conservative management. General surgery c onsult appreciated. Continue fluid and NG tube. At this point, the patient seems doing better. 2.Pneumonia questionable on x-ray. The patient on antibiotic. No fever. 3.Atrial fibrillation with rapid ventricular response. Heart rate around 117. The patient is on me toprolol 25 mg twice a day placed by Dr. Ludwig. We will continue with that. 4.Hypokalemia. We will replace. 5.Hypomagnesemia. We will replace. 6.Diabetes mellitus, chronic. We will place the patient on insulin sliding scale and home medicine. 7.Dementia. 8.Code status. Do not resuscitate. 9.Deep vein thrombosis prophylaxis with Lovenox. MT/MODL Voice ID: [id number] Report ID: [id number]
[2017-07-11] MEDS: ENOXAPARIN 40 MG/0.4 ML SQ SCH (17:26)
[2017-07-12] MEDS: METRONIDAZOLE 500mg IVPB 500 MG/100 ML BAG IV SCH ×3 (00:41→18:16)
[2017-07-12 05:08] LABS: Absolute Lymphocytes (CBC) 0.3 K/uL (0.7-4.9); Absolute Monocytes 0.4 K/uL (0.1-1.3); Absolute Neutrophil 4.3 K/uL (1.8-8.0); Basophils % 0.1 % (0-1.3); Eosinophils % 0.5 % (0-4.4); Hematocrit 33.2 % (39.6-49.0); Lymphocytes % 5.8 % (15.3-44.8); MCH 28.2 pg (27.0-35.0); MCV 86.6 fL (80-100); Monocytes % 7.5 % (3.3-12.3); RBC Red Blood Cell Count 3.83 M/uL (4.33-5.43)
[2017-07-12] MEDS: METOPROLOL TAR 25 MG TAB PO SCH ×2 (05:21→18:17)
[2017-07-12 05:40] LABS: ALT/SGPT 15 IU/L (10-60); AST/SGOT 18 IU/L (10-42); Albumin 1.8 g/dL (3.2-5.5); Alkaline Phosphatase 111 IU/L (42-121); BUN Blood Urea Nitrogen 36 mg/dL (6-20); Bicarbonate 23 mEq/L (21-31); Bilirubin Total 0.8 mg/dL (0.3-1.2); Glucose Level 142 mg/dL (65-120); Magnesium 1.7 mg/dL (1.8-2.5); Phosphorus 2.4 mg/dL (2.5-4.3); Potassium 3.7 mEq/L (3.6-5.0); Protein, Total 5.3 g/dL (6.0-8.3); Sodium Level 145 mEq/L (135-145)
[2017-07-12] MEDS ORDERED: MAGNESIUM SULFATE 1 gm IVPB 1 GM/100 ML BAG IV ONE (05:47)
[2017-07-12] MEDS ORDERED: POTASSIUM 25 MEQ EFFERV TAB PO ONE (05:50)
[2017-07-12] MEDS: INSULIN -REGULAR HUMAN 50 UNIT/0.5 ML ML SQ SCH ×4 (06:00→18:00)
[2017-07-12] MEDS: NA CHLORIDE 0.9% 1,000 ML IV SCH ×2 (08:05→20:20)
[2017-07-12] MEDS: CIPROFLOXACIN 400mg IV 400 MG/200 ML BAG IV SCH ×2 (08:06→22:25)
[2017-07-12] MEDS: PANTOPRAZOLE 40 MG INJ IVP SCH ×2 (08:07→22:43)
--- NOTE | 2017-07-12 10:49 | RAD REPORT ---
EXAM DESCRIPTION: RAD - Chest Single View - 07/12/2017 6:49 am CLINICAL HISTORY: Shortness of breath. COMPARISON: 04/23/2017 FINDINGS: Portable technique limits examination quality. Focal airspace opacity in the right upper lobe appears essentially unchanged. Left mid lung atelectas is and left basilar opacities appears less prominent on today's study. Small left pleural effusion is suspected. Enteric tube descends into the stomach. The heart is upper limit normal in size. Aortic a therosclerosis. IMPRESSION: Mild improvement in left lung aeration is seen since yesterday's study.
--- NOTE | 2017-07-12 15:38 | PN ---
Subjective: Currently, the patient lying in bed. He looks comfortable. He still have NG tube in hi s nose. He continued to be confused. His at the bedside. He did not have any bowel movement y et and he did not pass any gas. He sill have some fluid coming out of the NG tube. Review of Systems: Otherwise unobtainable. Physical Examination: Vital Signs: Currently, blood pressure is 101/61, respiratory rate 20, pulse 110, temperature 98. General: He is alert, but confused. Does not look in any distress. HEENT: Atraumatic, normocephalic. PERRLA. Oral mucosa is moist. Neck: Supple. No JVD. Chest: Clear to auscultation with basilar crackles with poor air entry. Heart: Regular rate and rhythm. No gallop or murmur. Abdomen: Soft, still minimally distended. Not tympanic. No rebound. No guarding. There is a posi tive but low bowel sounds. Extremities: No clubbing or cyanosis, or edema. Neuro: Deferred. Laboratory Data: Today showed CBC within normal except for hemoglobin 10.8. Chemistry within normal except for chloride 114, BUN of 36, glucose 142. Lactic acid, not checked. Magnesium of 1.7, phosp horus is 2.4. Assessment And Plan: 1.Small bowel obstruction on CT scan. Much better after NG tube placed but the patient did not pass stool or bowel movement yet or gas. General Surgery following. Continue conservative management wit h IV fluids. I will repeat abdominal x-ray today. 2.Questionable pneumonia on x-ray. Continue on antibiotic with Cipro 500 mg twice a day. 3.Low magnesium. Continue on protocol, replace magnesium. 4.Hypokalemia, resolved. 5.History of diabetes mellitus. Continue on insulin sliding scale. The patient's glucose around 13 8-155. 6.Dementia, severe. Maybe if bowel obstruction does not resolve, then hospice would be a good topic to discuss with . 7.Code status. Do not resuscitate. 8.Deep venous thrombosis prophylaxis with Lovenox. MT/KENNETHL Voice ID: [id number] Report ID: [id number]
[2017-07-12] MEDS: ALBUTEROL 2.5 MG/3 ML NEB SOL IH SCH ×2 (16:20→19:48)
[2017-07-12] MEDS: IPRATROPIUM BROM 0.5MG/2.5ML IH SCH ×2 (16:21→19:48)
[2017-07-12] MEDS: ENOXAPARIN 40 MG/0.4 ML SQ SCH (18:17)
--- NOTE | 2017-07-12 21:24 | RAD REPORT ---
EXAM DESCRIPTION: RAD - Abdomen W Erect - 07/12/2017 9:12 pm CLINICAL HISTORY: Small bowel obstruction COMPARISON: CT study 07/10/2017 FINDINGS: Moderate dilatation of small bowel loops is present in the abdomen compatible with moderat e mechanical small-bowel obstruction. NG tube descends into the stomach. No evidence of pneumoperiton eum. IMPRESSION: Moderately severe SBO persists.
[2017-07-12] MEDS: JUVEN PACKET PO SCH (22:25)
[2017-07-13] MEDS: METRONIDAZOLE 500mg IVPB 500 MG/100 ML BAG IV SCH ×2 (00:50→09:00)
[2017-07-13] MEDS: ALBUTEROL 2.5 MG/3 ML NEB SOL IH SCH ×4 (01:15→19:56)
[2017-07-13] MEDS: IPRATROPIUM BROM 0.5MG/2.5ML IH SCH ×4 (01:15→19:56)
[2017-07-13] MEDS: METOPROLOL TAR 25 MG TAB PO SCH ×2 (04:42→17:27)
[2017-07-13 05:54] LABS: Absolute Lymphocytes (CBC) 0.3 K/uL (0.7-4.9); Absolute Monocytes 0.4 K/uL (0.1-1.3); Absolute Neutrophil 4.4 K/uL (1.8-8.0); Basophils % 0.1 % (0-1.3); Eosinophils % 0.3 % (0-4.4); Hematocrit 32.3 % (39.6-49.0); Lymphocytes % 5.6 % (15.3-44.8); MCH 27.6 pg (27.0-35.0); MCV 86.3 fL (80-100); MPV 9.1 fL (7.6-11.3); Monocytes % 7.6 % (3.3-12.3); RBC Red Blood Cell Count 3.74 M/uL (4.33-5.43)
[2017-07-13] MEDS: INSULIN -REGULAR HUMAN 50 UNIT/0.5 ML ML SQ SCH ×5 (06:00→23:51)
[2017-07-13 06:10] LABS: Albumin 1.7 g/dL (3.2-5.5); Bilirubin Total 0.8 mg/dL (0.3-1.2); Phosphorus 2.2 mg/dL (2.5-4.3); Potassium 3.3 mEq/L (3.6-5.0)
[2017-07-13 06:19] LABS: Magnesium 1.4 mg/dL (1.8-2.5)
[2017-07-13 06:59] LABS: Blood Morphology Comment NOT SEEN (NOT SEEN); Platelet Estimate ADEQ
[2017-07-13] MEDS ORDERED: KCL 20 MEQ/100 mL IVPB 20 MEQ/100 ML BAG IV SCH (07:00)
[2017-07-13] MEDS ORDERED: Magnesium Sulfate 2gm IVPB 2 G/50 ML BAG IV ONE (07:00)
--- NOTE | 2017-07-13 08:04 | RAD REPORT ---
EXAM DESCRIPTION: Jaren Single View07/13/2017 6:30 am CLINICAL HISTORY: Chest pain COMPARISON: July 12, 20182017 FINDINGS: A nasogastric tube is present within the stomach. Mild worsening in left basilar lung opacities has occurred. No other change is noted. IMPRESSION: Mild worsening in a left basilar opacity which may represent pneumonia. No other change is noted
[2017-07-13] MEDS ORDERED: POTASSIUM PHOS IN 0.9 % NACL 15 MMOL/250 ML BAG IV ONE (09:00)
[2017-07-13] MEDS: CIPROFLOXACIN 400mg IV 400 MG/200 ML BAG IV SCH (09:00)
[2017-07-13] MEDS: JUVEN PACKET PO SCH ×2 (09:00→20:39)
--- NOTE | 2017-07-13 09:08 | P.PN ---
Subjective Date of Service: 07/12/17 Primary Care Provider: Resident at [facility] Chief Complaint: SBO Subjective: No new changes (Patient has no changes, has no pain by his report, no bowel function, but he cannot remember) Physical Examination - Vital Signs Temperature: 98.2 F Blood Pressure: 116/70 Pulse: 113 Respirations: 20 Pulse Ox (%): 99 - Physical Exam General: Alert, Cooperative, Confused Gastrointestinal: Other (soft, NT, moderate distention remains, no rebound, no guarding, no peritoneal signs) Assessment And Plan - Current Problems (Diagnosis) (1) SBO (small bowel obstruction) Current Visit: Yes Status: Acute Plan: - Continue NG tube decompression - Patient states that they do not want surgery at this time, as she feels he will not survive surgery. Her mother had a colon cancer and had a large resection and difficulty post operatively per her description. - I have stated the risks, benefits, and alternatives to surgery and stated that he has a bowel obstruction and if he does not improve, I would recommend surgery, although due to his comorbid medical condition it would be higher risk for complications and could be a more difficult recovery. Patient and continue to state they do not want any surgery at this time - I will continue to follow and be available for patient and family. - Hospice consult - electrolyte replacement - TPN and PICC line
--- NOTE | 2017-07-13 09:10 | P.PN ---
Subjective Date of Service: 07/13/17 Primary Care Provider: Resident at [facility] Chief Complaint: SBO Patient had small bowel movement last night, no other acute events, no pain. Physical Examination - Vital Signs Temperature: 98.2 F Blood Pressure: 116/70 Pulse: 113 Respirations: 20 Pulse Ox (%): 99 - Physical Exam General: Alert, Cooperative, Confused Gastrointestinal: Other (soft, moderate distention, no rebound, no guarding, non -tender) Assessment And Plan - Current Problems (Diagnosis) (1) SBO (small bowel obstruction) Current Visit: Yes Status: Acute Plan: - Continue NG tube decompression - Patient states that they do not want surgery at this time, as she feels he will not survive surgery. Her mother had a colon cancer and had a large resection and difficulty post operatively per her description. - I have stated the risks, benefits, and alternatives to surgery and stated that he has a bowel obstruction and if he does not improve, I would recommend surgery, although due to his comorbid medical condition it would be higher risk for complications and could be a more difficult recovery. Patient and continue to state they do not want any surgery at this time - I will continue to follow and be available for patient and family. - Hospice consult - electrolyte replacement - TPN and PICC line .
[2017-07-13] MEDS: PANTOPRAZOLE 40 MG INJ IVP SCH ×2 (10:10→20:40)
[2017-07-13] MEDS: NA CHLORIDE 0.9% 1,000 ML IV SCH ×2 (10:11→22:58)
[2017-07-13] MEDS ORDERED: Meropenem 500 MG VIAL IV SCH (11:00)
[2017-07-13] MEDS: Meropenem 500 MG in NA CHLORIDE 0.9% 100 ML IV SCH ×2 (12:45→17:28)
--- NOTE | 2017-07-13 16:42 | P.PN ---
Subjective Date of Service: 07/13/17 Primary Care Provider: Resident at [facility] Chief Complaint: SBO Patient seen and examined at bedside with RN. Case discussed with general surgery. Currently patient is still not ask cancer and bowel movement since is small bowel obstruction. Patient is a poor candidate for surgery this general surgery recommended hospice care. Family member notified. Family would like to wait 24 hr to make that decision. Will rediscuss hospice care tomorrow morning. Review of Systems 10-point ROS is otherwise unremarkable Physical Examination - Vital Signs Temperature: 99.5 F Blood Pressure: 105/65 Pulse: 135 Respirations: 18 Pulse Ox (%): 93 - Physical Exam General: In no apparent distress, Demented, Other (NG tube in place ) HEENT: Atraumatic, PERRLA, EOMI Neck: Supple, JVD not distended Respiratory: Normal air movement, Rhonchi/gurgles Cardiovascular: Regular rate/rhythm, Normal S1 S2 Gastrointestinal: Normal bowel sounds, No tenderness, Distended Musculoskeletal: No tenderness Integumentary: No rashes Neurological: Normal speech, Normal tone, Normal affect Lymphatics: No axilla or inguinal lymphadenopathy - Studies Medications List Reviewed: Yes Assessment & Plan - Problems (Diagnosis) (1) Sepsis Onset Date: 07/13/17 Current Visit: Yes Status: Acute Plan: Sepsis Most likely 2.2 to Bactermia 2.2 to PNA -Blood Culture + for ESBL. Switched to Meropenum -F/U with Lab in AM Qualifiers: Sepsis type: sepsis due to unspecified organism Qualified Code(s): A41.9 - Sepsis, unspecified organism (2) SBO (small bowel obstruction) Onset Date: 07/13/17 Current Visit: Yes Status: Acute Plan: SBO on the abd CT -NG tube in place. Helped a lot with pain per family -No BM or flatulence -Poor surgical Candidate -Hospice appropriate given Advance Dementia -Family wants 24hrs. -Will F/u in AM (3) PNA (pneumonia) Onset Date: 07/13/17 Current Visit: Yes Status: Acute Plan: PNA on the xray. -Procal +. -Sputum Culture - -On IV meropeneum Qualifiers: Pneumonia type: due to unspecified organism Laterality: unspecified laterality Lung location: unspecified part of lung Qualified Code(s): J18.9 - Pneumonia, unspecified organism (4) Atrial fibrillation with RVR Onset Date: 07/13/17 Current Visit: Yes Status: Acute Plan: AFib with RVR -Lopressor given in the ER -Currently in Regular Rate and rhythm -ON BB for now (5) Congestive heart failure Onset Date: 06/18/17 Current Visit: Yes Status: Chronic Qualifiers: Heart failure type: diastolic (6) Diabetes Onset Date: 06/18/17 Current Visit: No Status: Chronic Qualifiers: Diabetes mellitus type: type 2 Diabetes mellitus senior care insulin use: with senior care use Diabetes mellitus complication status: with circulatory complication Diabetes mellitus complication detail: with peripheral angiopathy without gangrene Qualified Code(s): E11.51 - Type 2 diabetes mellitus with diabetic peripheral angiopathy without gangrene; Z79.4 - hand meat salter (current) use of insulin; Z79.4 - hand meat salter (current) use of insulin; Z79.4 - assisted (current) use of insulin; Z79.4 - assisted (current) use of insulin (7) Essential hypertension Onset Date: 06/18/17 Current Visit: Yes Status: Chronic (8) Dementia Onset Date: 07/13/17 Current Visit: Yes Status: Chronic Plan: Advance Dementia Qualifiers: Dementia type: unspecified type Dementia behavioral disturbance: without behavioral disturbance Qualified Code(s): F03.90 - Unspecified dementia without behavioral disturbance Discharge Plan: Other Plan to discharge in: 24 Hours - Code Status/Comfort Care Code Status Assessed: Yes Code Status: Do Not Resuscitate Critical Care: No
[2017-07-13] MEDS: ENOXAPARIN 40 MG/0.4 ML SQ SCH (17:28)
[2017-07-13] MEDS: SODIUM CHLORIDE 0.9% 10ML INJ IV PRN (20:40)
[2017-07-13 23:25] LABS: Magnesium 1.9 mg/dL (1.8-2.5); Potassium 3.1 mEq/L (3.6-5.0)
[2017-07-14] MEDS: Meropenem 500 MG in NA CHLORIDE 0.9% 100 ML IV SCH ×3 (00:05→17:01)
[2017-07-14] MEDS: KCL 20 MEQ/100 mL IVPB 20 MEQ/100 ML BAG IV SCH ×4 (00:56→16:00)
[2017-07-14] MEDS: ALBUTEROL 2.5 MG/3 ML NEB SOL IH SCH ×4 (01:31→20:13)
[2017-07-14] MEDS: IPRATROPIUM BROM 0.5MG/2.5ML IH SCH ×4 (01:31→20:13)
[2017-07-14] MEDS: METOPROLOL TAR 25 MG TAB PO SCH ×2 (05:15→17:02)
[2017-07-14] MEDS: INSULIN -REGULAR HUMAN 50 UNIT/0.5 ML ML SQ SCH ×3 (06:00→18:00)
[2017-07-14 06:13] LABS: Magnesium 1.9 mg/dL (1.8-2.5); Phosphorus 2.7 mg/dL (2.5-4.3); Potassium 3.8 mEq/L (3.6-5.0)
[2017-07-14] MEDS: JUVEN PACKET PO SCH ×2 (09:00→21:00)
[2017-07-14] MEDS: PANTOPRAZOLE 40 MG INJ IVP SCH ×2 (09:27→21:35)
[2017-07-14] MEDS: NA CHLORIDE 0.9% 1,000 ML IV SCH (14:28)
--- NOTE | 2017-07-14 15:26 | P.PN ---
Subjective Date of Service: 07/14/17 Primary Care Provider: Resident at [facility] Chief Complaint: SBO Patient seen and examined at bedside with RN. Case discussed with general surgery. Currently is considering Hospice with [facility]. No BM and flatulence Review of Systems General: As per HPI Physical Examination - Vital Signs Temperature: 98.6 F Blood Pressure: 107/66 Pulse: 137 Respirations: 19 Pulse Ox (%): 99 - Physical Exam General: Alert, Demented HEENT: Atraumatic Neck: Supple Respiratory: Crackles/rales, Other (Gurgles ) Cardiovascular: Regular rate/rhythm, Normal S1 S2 Gastrointestinal: Normal bowel sounds, Soft and benign, Non-distended Integumentary: No rashes Neurological: Normal strength at 5/5 x4 extr, Abnormal speech - Studies Medications List Reviewed: Yes Assessment & Plan - Problems (Diagnosis) (1) Sepsis Onset Date: 07/13/17 Current Visit: Yes Status: Acute Plan: Sepsis Most likely 2.2 to Bactermia 2.2 to PNA -Blood Culture + for ESBL. Switched to Meropenum Qualifiers: Sepsis type: sepsis due to unspecified organism Qualified Code(s): A41.9 - Sepsis, unspecified organism (2) SBO (small bowel obstruction) Onset Date: 07/13/17 Current Visit: Yes Status: Acute Plan: SBO on the abd CT -NG tube in place. Helped a lot with pain per family -No BM or flatulence -Poor surgical Candidate -Hospice appropriate given Advance Dementia -Family currently deciding. -Will F/u in AM (3) PNA (pneumonia) Onset Date: 07/13/17 Current Visit: Yes Status: Acute Plan: PNA on the xray. -Procal +. -Sputum Culture - -On IV meropeneum Qualifiers: Pneumonia type: due to unspecified organism Laterality: unspecified laterality Lung location: unspecified part of lung Qualified Code(s): J18.9 - Pneumonia, unspecified organism (4) Atrial fibrillation with RVR Onset Date: 07/13/17 Current Visit: Yes Status: Acute Plan: AFib with RVR -Lopressor given in the ER -Currently in Regular Rate and rhythm -ON BB for now (5) Congestive heart failure Onset Date: 06/18/17 Current Visit: Yes Status: Chronic Qualifiers: Heart failure type: diastolic (6) Diabetes Onset Date: 06/18/17 Current Visit: No Status: Chronic Qualifiers: Diabetes mellitus type: type 2 Diabetes mellitus manager terminal insulin use: with manager terminal use Diabetes mellitus complication status: with circulatory complication Diabetes mellitus complication detail: with peripheral angiopathy without gangrene Qualified Code(s): E11.51 - Type 2 diabetes mellitus with diabetic peripheral angiopathy without gangrene; Z79.4 - termite treater (current) use of insulin; Z79.4 - termite treater (current) use of insulin; Z79.4 - termite treater (current) use of insulin; Z79.4 - shelter (current) use of insulin (7) Essential hypertension Onset Date: 06/18/17 Current Visit: Yes Status: Chronic (8) Dementia Onset Date: 07/13/17 Current Visit: Yes Status: Chronic Plan: Advance Dementia Qualifiers: Dementia type: unspecified type Dementia behavioral disturbance: without behavioral disturbance Qualified Code(s): F03.90 - Unspecified dementia without behavioral disturbance (9) Malnutrition Current Visit: Yes Status: Chronic Qualifiers: Malnutrition type: protein-calorie malnutrition Protein-calorie malnutrition severity: moderate Qualified Code(s): E44.0 - Moderate protein- calorie malnutrition Discharge Plan: Residential Plan to discharge in: 48 Hours - Code Status/Comfort Care Code Status Assessed: Yes Critical Care: No
[2017-07-14] MEDS: ENOXAPARIN 40 MG/0.4 ML SQ SCH (17:01)
[2017-07-14] MEDS: SODIUM CHLORIDE 0.9% 10ML INJ IV PRN (21:35)
[2017-07-15] MEDS: Meropenem 500 MG in NA CHLORIDE 0.9% 100 ML IV SCH ×2 (00:55→09:00)
[2017-07-15] MEDS: NA CHLORIDE 0.9% 1,000 ML IV SCH (00:56)
[2017-07-15] MEDS: ALBUTEROL 2.5 MG/3 ML NEB SOL IH SCH ×3 (02:00→14:00)
[2017-07-15] MEDS: IPRATROPIUM BROM 0.5MG/2.5ML IH SCH ×3 (02:00→14:00)
[2017-07-15] MEDS: METOPROLOL TAR 25 MG TAB PO SCH (05:06)
[2017-07-15] MEDS: INSULIN -REGULAR HUMAN 50 UNIT/0.5 ML ML SQ SCH ×3 (06:00→12:00)
[2017-07-15 08:33] VITALS: O2SAT 97
[2017-07-15] MEDS: JUVEN PACKET PO SCH (09:00)
--- NOTE | 2017-07-15 09:24 | P.PN ---
Subjective Date of Service: 07/15/17 Primary Care Provider: Resident at [facility] Chief Complaint: SBO Subjective: Improving Improving distention - patient continues to state she does not wish for patient to have surgery , and will meet with hospice today Physical Examination - Vital Signs Temperature: 98.4 F Blood Pressure: 170/75 Pulse: 89 Respirations: 16 Pulse Ox (%): 95 - Physical Exam General: Alert, In no apparent distress, Confused Gastrointestinal: Other (soft, NT, improved distention, no rebound, no guarding) - Studies Microbiology Data (last 24 hrs): 07/10/17 11:30 Blood - Blood Aerobic Blood Culture - Final Escherichia Coli 07/10/17 11:30 Blood - Blood Gram Stain - Final 07/10/17 11:30 Blood - Blood Anaerobic Blood Culture - Final No growth in 5 days. Medications List Reviewed: Yes Assessment And Plan - Current Problems (Diagnosis) (1) SBO (small bowel obstruction) Onset Date: 07/13/17 Current Visit: Yes Status: Acute Plan: - Patient states that they do not want surgery at this time, as she feels he will not survive surgery. Her mother had a colon cancer and had a large resection and difficulty post operatively per her description. - I have stated the risks, benefits, and alternatives to surgery and stated that he has a bowel obstruction and if he does not improve, I would recommend surgery, although due to his comorbid medical condition it would be higher risk for complications and could be a more difficult recovery. Patient and continue to state they do not want any surgery at this time - I will continue to follow and be available for patient and family. - Hospice consult - electrolyte replacement - clamp trial for NG tube, if tolerated well, DC NG tube and start diet - speech pathology consult when NG tube removed .
[2017-07-15] MEDS: PANTOPRAZOLE 40 MG INJ IVP SCH (10:26)
--- NOTE | 2017-07-15 10:55 | P.DS ---
Admission Date: 07/10/17 Discharge Date: 07/15/17 Primary Care Provider: Resident at [facility] Disposition: HOSPICE-MEDICAL FACILITY Discharge Condition: GOOD Reason for Admission: SBO Consultations: Gen Surgery [facility] hospice Procedures: NG tube Placement - Problems (1) Sepsis Onset Date: 07/13/17 Current Visit: Yes Status: Acute Qualifiers: Sepsis type: Escherichia coli Qualified Code(s): A41.51 - Sepsis due to Escherichia coli [E. coli] (2) SBO (small bowel obstruction) Onset Date: 07/13/17 Current Visit: Yes Status: Acute (3) PNA (pneumonia) Onset Date: 07/13/17 Current Visit: Yes Status: Acute Qualifiers: Pneumonia type: aspiration pneumonia Aspiration pneumonia type: due to regurgitated food Laterality: left Lung location: lower lobe of lung Qualified Code(s): J69.0 - Pneumonitis due to inhalation of food and vomit (4) Atrial fibrillation with RVR Onset Date: 07/13/17 Current Visit: Yes Status: Resolved (5) Congestive heart failure Onset Date: 06/18/17 Current Visit: Yes Status: Chronic Qualifiers: Heart failure type: diastolic (6) Diabetes Onset Date: 06/18/17 Current Visit: No Status: Chronic Qualifiers: Diabetes mellitus type: type 2 Diabetes mellitus half-way insulin use: with terminal supervisor use Diabetes mellitus complication status: with circulatory complication Diabetes mellitus complication detail: with peripheral angiopathy without gangrene Qualified Code(s): E11.51 - Type 2 diabetes mellitus with diabetic peripheral angiopathy without gangrene; Z79.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 of insulin; Z79.4 - snf (current) use of insulin; Z79.4 - snf (current) use of insulin; Z79.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 of insulin (7) Essential hypertension Onset Date: 06/18/17 Current Visit: Yes Status: Chronic (8) Dementia Onset Date: 07/13/17 Current Visit: Yes Status: Chronic Qualifiers: Dementia type: unspecified type Dementia behavioral disturbance: without behavioral disturbance Qualified Code(s): F03.90 - Unspecified dementia without behavioral disturbance (9) Malnutrition Current Visit: Yes Status: Chronic Qualifiers: Malnutrition type: protein-calorie malnutrition Protein-calorie malnutrition severity: moderate Qualified Code(s): E44.0 - Moderate protein- calorie malnutrition Brief History of Present Illness: This is a 89-year-old male with significant past medical history of type 2 diabetes chronic kidney disease, hypertension, anemia atrial fibrillation dementia who lives at [facility] who presented to the ER after having 1 week of poor appetite. Patient is alert and oriented x1 at baseline his at bedside provided most of the information. By stated that a week ago patient started declining in terms of dietary habits and has not been able to get out of his bed like she used to. Patient has not had anything to eat or drink since past couple of days as well. Patient's got worried and thus decided to bring him to the ER. Patient's also noted that initially patient was having a bowel movement at the intermediate however she has no idea if she has had any other bowel movements since past 2 days. She denies having any nausea vomiting or any other associated symptoms that she has noticed a half. Patient's abdomen was distended last night and does a great he is more concerned and thus he was sent over to the hospital for further workup. In the ER patient had an abdominal CT scan done which was consistent with small- bowel obstruction and was found to be in AFib with RVR along with pneumonia on the chest x-ray. Medicine was consulted for further workup and admission. Hospital Course: Overall During the hospital stay pt remained stable. Pt was discharged to [facility] hospice for DX of Advance Dementia Pt was initially admitted to the hospital for SBO. NG tube was placed and pt had improvement of his symptoms. Gen Surgery Was consulted. Pt was not able to Have a BM or Flatulence. Surgery is High risk for this pt and risk outweighs the benefits. At that time hospice was setup for the patient. at bedside who is the POA agreed for hospice given the comorbid condition and high risk for surgery. Pt was then accepted by [facility] hospice. Vital Signs/Physical Exam: Temp Pulse Resp BP Pulse Ox 98.4 F 89 16 170/75 H 95 07/15/17 09:24 07/15/17 09:24 07/15/17 09:24 07/15/17 09:24 07/15/17 09:24 General: Cachectic, Demented HEENT: Atraumatic Neck: Supple Respiratory: Normal air movement, Crackles/rales, Rhonchi/gurgles Cardiovascular: Regular rate/rhythm, Normal S1 S2 Gastrointestinal: Normal bowel sounds, Soft and benign, Non-distended Musculoskeletal: No swelling, Other (Stage 2 Ulcer BL ) Integumentary: Skin breakdown Laboratory Data at Discharge: WBC 5.1 K/uL (4.3-10.9) 07/13/17 05:18 Hgb 10.3 g/dL (13.6-17.9) L 07/13/17 05:18 Hct 32.3 % (39.6-49.0) L 07/13/17 05:18 Plt Count 156 K/uL (152-406) 07/13/17 05:18 PT 17.7 SECONDS (9.5-12.5) H 07/10/17 11:30 INR 1.49 07/10/17 11:30 Sodium 148 mEq/L (135-145) H 07/14/17 04:29 Potassium 3.4 mEq/L (3.6-5.0) L 07/14/17 10:22 BUN 21 mg/dL (6-20) H 07/14/17 04:29 Creatinine 0.81 mg/dL (0.61-1.24) 07/14/17 04:29 Glucose 121 mg/dL (65-120) H 07/14/17 04:29 Phosphorus 2.7 mg/dL (2.5-4.3) 07/14/17 04:29 Magnesium 1.9 mg/dL (1.8-2.5) 07/14/17 04:29 Total Bilirubin 0.8 mg/dL (0.3-1.2) 07/13/17 05:18 AST 14 IU/L (10-42) 07/13/17 05:18 ALT 13 IU/L (10-60) 07/13/17 05:18 Alkaline Phosphatase 100 IU/L (42-121) 07/13/17 05:18 B-Natriuretic Peptide 176 pg/ml (<=100) H 07/10/17 11:30 Home Medications: Acetaminophen [Tylenol] 325 mg PO Q6HP PRN 07/10/17 Arginine/Ascorbate Sod/Meron AC [Arginaid Powder] 1 pkg PO BID 07/10/17 Aspirin 81 mg PO DAILY 07/10/17 Collagenase [Santyl Ointment*] 1 spencer TOP DAILY 07/10/17 Insulin -Regular Human [Novolin -R*] See Protocol SQ ACHS 07/10/17 Metformin HCl [Glucophage*] 1 tab PO BID 07/10/17 Metoprolol Tartrate 25 mg PO Q12H 07/10/17 Multivit,Ther Iron,Ca,FA & Min [Centrum Tablet*] 1 tab PO DAILY 07/10/17 Potassium Chloride 20 meq PO DAILY 07/10/17 Travoprost (Benzalkonium) [Travatan 0.004% Eye Drop] 1 gtt EACH EYE BEDTIME Patient Discharge Instructions: You are going to be discharges to [facility]. You care will be taken over by Dr Cervantes at [facility] Diet: As tolerated Activity: Ad sherri
[2017-07-15 17:15] VITALS: BP 106/50; TEMP 97.2
== END 2017-07-15 16:43 | disposition hospice, inpatient (51) | DRG 871 ==
LOC: ER 11:26 → ERHOLD 14:34 → 2ND 15:25 → 3RD-ICU 16:05 → 2ND 07-11 14:50
PROVIDERS: ADMIT Family Medicine; ATTEND Family Medicine
DX: A41.51 Sepsis due to Escherichia coli [E. coli] (principal); J69.0 Pneumonitis due to inhalation of food and vomit; K56.609 Unspecified intestinal obstruction, unspecified as to partial versus complete obstruction; I13.0 Hypertensive heart and chronic kidney disease with heart failure and stage 1 through stage 4 chronic kidney disease, or unspecified chronic kidney disease; I50.32 Chronic diastolic (congestive) heart failure; E44.0 Moderate protein-calorie malnutrition; N18.9 Chronic kidney disease, unspecified; E11.51 Type 2 diabetes mellitus with diabetic peripheral angiopathy without gangrene; Z66 Do not resuscitate; E11.22 Type 2 diabetes mellitus with diabetic chronic kidney disease; I48.91 Unspecified atrial fibrillation; E87.6 Hypokalemia; E83.42 Hypomagnesemia; K74.60 Unspecified cirrhosis of liver; H40.9 Unspecified glaucoma; F03.90 Unspecified dementia, unspecified severity, without behavioral disturbance, psychotic disturbance, mood disturbance, and anxiety; D64.9 Anemia, unspecified; Z68.21 Body mass index [BMI] 21.0-21.9, adult; Z85.118 Personal history of other malignant neoplasm of bronchus and lung
CPT/HCPCS: 36415; 51702; 71045; 74019; 74177; 80048; 80053; 80076; 81003; 82140; 82550; 82962; 83605; 83735; 83880; 84100; 84132; 84145; 84484; 85025; 85610; 87040; 87077; 87186; 87205; 93005; 94640; 96361; 96365; 96367; 96375; 97163; 99285; C9113; J0744; J1160; J1650; J3475; J7030; Q9967

== ENCOUNTER 2017-07-15 17:15 | Inpatient (IN) | payer OTHER ==
[2017-07-15] MEDS ORDERED: Morphine 2 MG/2 ML SYR IV PRN (18:10)
[2017-07-15] MEDS ORDERED: LORazepam 2 MG/ML VIAL IV PRN ×2 (18:12→19:50)
[2017-07-15] MEDS ORDERED: ONDANSETRON 4 MG/2 ML VIAL IV PRN (18:14)
[2017-07-15] MEDS ORDERED: SCOPOLAMINE HYDROBROMIDE PATCH TD SCH (18:15)
[2017-07-15] MEDS ORDERED: ACETAMINOPHEN 650MG/RECT SUPP PR PRN (18:16)
[2017-07-15 18:37] VITALS: BMI 21.5
[2017-07-15] MEDS: LORazepam 2 MG/ML VIAL IV SCH (21:56)
[2017-07-15] MEDS: Morphine 2 MG/2 ML SYR IV SCH (21:57)
[2017-07-16] MEDS: Morphine 2 MG/2 ML SYR IV SCH ×6 (01:31→21:59)
[2017-07-16] MEDS: LORazepam 2 MG/ML VIAL IV SCH ×6 (01:32→21:59)
[2017-07-16 20:33] VITALS: BP 91/52; TEMP 97.7
[2017-07-16 20:59] VITALS: O2SAT 94
[2017-07-17] MEDS: Morphine 2 MG/2 ML SYR IV SCH ×2 (00:49→05:00)
[2017-07-17] MEDS: LORazepam 2 MG/ML VIAL IV SCH ×2 (00:49→05:00)
== END 2017-07-17 04:50 | disposition expired | DRG 951 ==
LOC: 2ND 17:15
PROVIDERS: ADMIT Internal Medicine Hematology & Oncology; ATTEND Internal Medicine Hematology & Oncology
DX: Z51.5 Encounter for palliative care (principal); A41.51 Sepsis due to Escherichia coli [E. coli]; J69.0 Pneumonitis due to inhalation of food and vomit; K56.609 Unspecified intestinal obstruction, unspecified as to partial versus complete obstruction; I13.0 Hypertensive heart and chronic kidney disease with heart failure and stage 1 through stage 4 chronic kidney disease, or unspecified chronic kidney disease; I50.32 Chronic diastolic (congestive) heart failure; E44.0 Moderate protein-calorie malnutrition; N18.9 Chronic kidney disease, unspecified; E11.51 Type 2 diabetes mellitus with diabetic peripheral angiopathy without gangrene; E11.22 Type 2 diabetes mellitus with diabetic chronic kidney disease; I48.91 Unspecified atrial fibrillation; E87.6 Hypokalemia; E83.42 Hypomagnesemia; K74.60 Unspecified cirrhosis of liver; F03.90 Unspecified dementia, unspecified severity, without behavioral disturbance, psychotic disturbance, mood disturbance, and anxiety; D64.9 Anemia, unspecified
CPT/HCPCS: J2270